=== PATIENT | female | born 1950 | race African-American/Black ===

== ENCOUNTER 2016-10-23 15:11 | Inpatient (IN) ==
[2016-10-23] MEDS ORDERED: ONDANSETRON 4 MG/2 ML VIAL IV STA (15:34)
--- NOTE | 2016-10-23 15:39 | Emergency Department Note ---
Arrival - Arrival Chief Complaint: Non-Specific ED Nursing Triage Note: c/o swelling to arms and legs onset 6 days ago Mode of Arrival: Stretcher Limitations: No Limitations Source: Patient - History of Present Illness HPI Narrative: This 66-year-old black female presents with complaints of one-week insidious onset of anasarca. She has had some mild nausea with this but no shortness of breath, chest pain, iram vomiting, or diarrhea. 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 Despite this she appears in relatively stable medical condition. Onset (ago): week(s) (Patient presents 1 week post onset of symptoms) Allergies/Adverse Reactions: Allergies Allergy/AdvReac Type Severity Reaction Status Date / Time No Known Allergies Allergy Unverified 05/15/15 19:30 Home Medications: Home Medications Medication Instructions Recorded Confirmed Type Unable To Obtain [Unable to Obtain] 10/22/16 10/22/16 History Review of System - Review of System 12 point system: reviewed and no additional remarkable complaints except as stated - Review of System Constitutional: Present: as per HPI Respiratory: Present: as per HPI Cardiovascular: Present: as per HPI Gastrointestinal: Present: as per HPI Medical,Surgical,& Family Hx - Medical History Cardio: History of: Hypertension Neurology: History of: Cerebrovascular Accident Endocrine: History of: Diabetes Mellitus (IDDM), Dyslipidemia Renal: History of: Renal (Kidney) Cancer (RT.KIDNEY REMOVAL), Dialysis, Renal Failure - Surgical History HEENT Surgeries: Surgical HX of: Eye Surgery (Melo cataract Dr Layne) Abdominal Surgeries: Surgical HX of: Hernia Repair (x4) Orthopedic Surgeries: Surgical HX of;: Orthopedic Surgery (left) - Social History Smoking Status: Unknown if ever smoked Frequency of Alcohol Use: None Type of Drug Use: None Exam Physical Examination: GENERAL: Well developed, well nourished elderly black female in no acute distress. HEENT: Normocephalic. No trauma. Moist mucous membranes. EOMI. PERRLA. ENT NML NECK: Supple. No adenopathy. CARDIAC: Regular. No murmurs. Heart rate 54 CHEST: Clear to auscultation. No respiratory distress. O2 sat 100% ABDOMEN: Soft. Nontender. Active bowel sounds. EXTREMITIES: No trauma. Normal ROM. No pedal edema. Right upper extremity AV fistula with good thrill. 1+ edema of the lower extremities. SKIN: No diaphoresis. No rash. NEURO: Alert. Neuro intact. No focal deficits. Vital Signs: Vital Signs Temperature 98.7 F 10/23/16 15:15 Pulse Rate 54 L 10/23/16 15:15 Respiratory Rate 18 10/23/16 16:27 Blood Pressure 162/55 10/23/16 15:15 O2 Sat by Pulse Oximetry 100 10/23/16 15:15 Course - Reevaluation(s) Reevaluation #1: Advised patient of need for hospitalization for treatment of her renal disease caused by her own neglect - Consultations Consultation #1: Discussed with hospitalist who will admit for further evaluation treatment. Results - Labs CBC & BMP: 10/23/16 16:05 10/23/16 16:05 Labs: I have reviewed the laboratory noted the multiple abnormalities including hyperkalemia - Impressions EKG: Atrial fibrillation at 53 with intraventricular conduction delay. Diffuse nonspecific ST changes. No acute injury pattern noted. - Diagnostic Findings Procedure: Chest x-ray: image reviewed by me, report reviewed by me (Old granulomatous disease otherwise normal chest.) Disposition Clinical Impression: Hyperkalemia, Dialysis dependent renal failure Case discussed with: patient Disposition: Still a Patient Condition: Guarded Time of Disposition: 17:06
[2016-10-23] MEDS: ALBUTEROL 2.5 MG/3 ML NEB RESP TX SCH ×3 (16:00→16:40)
[2016-10-23 16:07] LABS: Basophils % 0.1 % (0.0-0.8); Eosinophils # 0.3 10*3/uL (0.0-0.87); Eosinophils % 3.5 % (0.00-10.9); Hematocrit 23.6 VOL% (35.7-47.0); Hemoglobin 7.9 GM/DL (12.0-16.0); Immature Granulocytes % 1.3 %; Immature Granulocytes Absolute 0.09 #; Lymphocytes # 1.2 10*3/uL (1.4-4.0); Lymphocytes % 16.5 % (21.3-54.2); Mean Corpuscular HGB Conc 33.5 GM/DL (32-36); Mean Corpuscular Hemoglobin 33 PG (27-34); Mean Corpuscular Volume 99.2 FL (87-102); Mean Platelet Volume 10.1 FL (9.6-12.0); Monocytes # 0.4 10*3/uL (0.11-0.8); NRBC # 0.02 10*3/uL; Neutrophils # 5.2 10*3/uL (1.4-7.4); Neutrophils % 72.6 % (38.7-73.9); Platelet Count 140 T/CUMM (130-400); Red Blood Count 2.38 MC/CUMM (3.8-5.5); Red Cell Distribution Width 15.9 % (9.3-17.3); White Blood Count 7.1 T/CUMM (4-12)
[2016-10-23] MEDS ORDERED: ONDANSETRON 4 MG/2 ML VIAL ONE (16:12)
[2016-10-23 16:15] LABS: ABG Base Excess -17.7 MMOL/L (-2.5-2.5); ABG HCO3 8.6 MMOL/L (20-26); ABG Oxygen Saturation 96.7 % (95-100); ABG PCO2 22.2 MM HG (35-48); ABG PO2 106.4 MM HG (80-95); ABG TCO2 9.3 MMOL/L (23-27)
[2016-10-23 16:17] LABS: INR 1.1; PT Patient Result 11.3 SECS; Partial Thromboplastin Time 28.6 SECS (0-40)
[2016-10-23 16:17] LABS: ABG PH 7.206 (7.35-7.45)
--- NOTE | 2016-10-23 16:19 | XRay Report ---
Portable chest. Indication: Shortness of breath. The heart is normal in size. The pulmonary vasculature is normal. The lung agustin are clear. Calcified granulomas are again noted. No pneumothorax or pleural effusion. Degenerative changes are seen within the right shoulder. Impression: No acute abnormality PROCEDURE INTERPRETED AT [facility] DEPARTMENT OF RADIOLOGY Final Report Signed by: Dr. Anusha Ambriz
[2016-10-23 16:28] LABS: Albumin 2.9 G/DL (3.4-5.0); Bilirubin,Total 0.4 MG/DL (0.2-1.0); CKMB % 5.5 %; Calcium 6.3 MG/DL (8.5-10.1); Osmolality,Calculated 320.3 MOS/KG (273-304); Total Protein 6.1 G/DL (6.4-8.3)
[2016-10-23 16:33] LABS: Potassium 7.3 MMOL/L (3.5-5.1); Troponin I Only 0.106 NG/ML (0.00-0.045)
[2016-10-23] MEDS ORDERED: ALBUTEROL NEB SOLN 5 MG/ML 20 ML/BOTTLE CONT NEB STA (16:39)
[2016-10-23] MEDS ORDERED: CALCIUM CHLORIDE 1,000 MG/10 ML SYRINGE IV STA (16:39)
[2016-10-23] MEDS ORDERED: INSULIN REGULAR 100 UNIT/ML IV STA (16:39)
[2016-10-23] MEDS ORDERED: DEXTROSE 50% 25 GM/50 ML VIAL IV STA (16:39)
--- NOTE | 2016-10-23 16:47 | EKG Report ---
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
[2016-10-23] MEDS ORDERED: ONDANSETRON 4 MG/2 ML VIAL IV PRN (17:17)
--- NOTE | 2016-10-23 17:22 | Hospitalist History & Physical ---
Assessment and Plan (1) Hyperkalemia Status: Acute Assessment and plan: Potassium is grossly elevated, ED presentation noted at 7.3. The patient was given intravenous insulin and dextrose 50% with minimal response. The patient will be admitted to the critical care setting. We have consulted and spoke with nephrology regarding the need for emergent dialysis. Will closely monitor the patient for any cardiac abnormalities. (2) End stage renal failure on dialysis Status: Acute Assessment and plan: The patient is noncompliant with her hemodialysis treatment. Patient clearly needs hemodialysis at this point. Spoke with the patient in great detail regarding the need to medically compliant patient states "she did not feel like going". Nephrology has been consulted for emergent hemodialysis (3) Medical non-compliance Status: Acute Assessment and plan: Patient has noted noncompliance with her dialysis treatments. When I inquired related to the reason why she has been noncompliant patient states "I do not know. History of Present Illness Chief complaint: Swelling to the bilateral arms and legs History of present illness: Ms. Tony is a 66 year old female Allergies Allergy/AdvReac Type Severity Reaction Status Date / Time No Known Allergies Allergy Unverified 05/15/15 19:30 Medical,Surgical,& Family Hx - Medical History Cardio: History of: Hypertension Neurology: History of: Cerebrovascular Accident Endocrine: History of: Diabetes Mellitus (IDDM), Dyslipidemia Renal: History of: Renal (Kidney) Cancer (RT.KIDNEY REMOVAL), Dialysis, Renal Failure - Surgical History HEENT Surgeries: Surgical HX of: Eye Surgery (Melo cataract Dr Layne) Abdominal Surgeries: Surgical HX of: Hernia Repair (x4) Orthopedic Surgeries: Surgical HX of;: Orthopedic Surgery (left) - Social History Smoking Status: Unknown if ever smoked Frequency of Alcohol Use: None Type of Drug Use: None 12 point system: reviewed and no additional remarkable complaints except as stated Exam - Constitutional Vitals: Period Temp Pulse Resp BP Sys/Bae Pulse Ox Last 24 Hr 98.7 F-98.7 F 51-58 17-19 162-162/55-55 97-100 General appearance: mild distress, other (Anasarca) - Head Head exam: Present: normal inspection, normocephalic, atraumatic - Eye Eye exam: Present: EOMI. Absent: conjunctival injection Pupils: Present: FIORDALIZA, normal accommodation - ENT ENT exam: Present: normal exam, normal external ear exam, normal oropharynx - Neck Neck exam: Present: normal inspection. Absent: lymphadenopathy, meningismus, thyromegaly - Respiratory Respiratory exam: Present: clear to auscultation bilaterally. Absent: rales, rhonchi, stridor, wheezes - Cardiovascular Cardiovascular exam: Present: bradycardia, JVD. Absent: carotid bruit, diastolic murmur, gallop, rubs, systolic murmur - GI/Abdominal GI/Abdominal exam: Present: normal bowel sounds, soft - Extremities Exam Extremities exam: Present: edema (Anasarca noted to upper and lower torso) - Neurological Exam Neurological exam: Present: alert, oriented X3 - Psychiatric Psychiatric exam: Present: normal affect, normal mood - Skin Skin exam: Present: normal color, warm, dry Results - Labs CBC & BMP: 10/23/16 16:05 10/23/16 16:05 Lab Results: I have reviewed the past 24 hour labs
[2016-10-23] MEDS ORDERED: LUBIPROSTONE 24 MCG CAPSULE PO PRN (19:22)
[2016-10-23] MEDS: AMITRIPTYLINE 10 MG TABLET PO SCH (20:55)
[2016-10-23] MEDS: MORPHINE 2 MG/1 ML SYRINGE IV PRN (20:55)
[2016-10-23] MEDS: clonazePAM 0.5 MG TABLET PO SCH (20:55)
[2016-10-23] MEDS ORDERED: MIRTAZAPINE 15 MG TABLET PO SCH (21:00)
[2016-10-23 21:56] LABS: Hepatitis A Ab IgM Quant 0.06 Index; Hepatitis A Ab IgM Result Negative (Negative); Hepatitis B Core IgM Quant 0.19 Index; Hepatitis B Core IgM Result Negative (Negative); Hepatitis B Surface Ab Result Negative; Hepatitis B Surface Ag Quant 0.28 Index; Hepatitis B Surface Ag Result Negative (Negative); Hepatitis C Virus Ab Quant 0.12 Index; Hepatitis C Virus Ab Result Negative (Negative)
--- NOTE | 2016-10-23 23:52 | Nephrology Consult Note ---
History of Present Illness History of present illness: Ms. Tony is a 66 year old female with ESRD secondary to hypertension. She normally dialyzes in [facility]. She has missed dialysis for the past 2 weeks. She states she just did not feel like going. She was here yesterday and advised to stay for dialysis but left AMA. She returned today with complaints of increasing edema. She denies shortness of breath or nausea. She was noted to have severe hyperkalemia Home Medications Medication Instructions Recorded Confirmed Type Amitriptyline [Elavil] 10 mg PO TID 10/23/16 10/23/16 History Levofloxacin Tab [Levaquin Tab] 500 mg PO DAILY 10/23/16 10/23/16 History Lubiprostone [Amitiza] 24 mcg PO BID PRN 10/23/16 10/23/16 History Mirtazapine 15 mg PO QPM 10/23/16 10/23/16 History amLODIPine [Norvasc] 10 mg PO DAILY 10/23/16 10/23/16 History clonazePAM TAB [KlonoPIN] 0.5 mg PO BID 10/23/16 10/23/16 History hydrALAZINE TAB [Apresoline Tab] 50 mg PO TID 10/23/16 10/23/16 History Allergies Allergy/AdvReac Type Severity Reaction Status Date / Time No Known Allergies Allergy Unverified 05/15/15 19:30 Medical,Surgical,& Family Hx - Medical History Cardio: History of: Hypertension Neurology: History of: Cerebrovascular Accident (2005) Endocrine: History of: Diabetes Mellitus (IDDM), Diabetes Mellitus (NIDDM), Dyslipidemia Renal: History of: Renal (Kidney) Cancer (RT.KIDNEY REMOVAL 2009), Dialysis, Renal Failure - Surgical History Cardiac Surgeries: Sugical HX of: Cardiac Catheterization HEENT Surgeries: Surgical HX of: Eye Surgery (Melo cataract Dr Layne) Abdominal Surgeries: Surgical HX of: Hernia Repair (x4) Orthopedic Surgeries: Surgical HX of;: Orthopedic Surgery (left) - Social History Smoking Status: Heavy tobacco smoker Frequency of Alcohol Use: None Type of Drug Use: None Review of Systems 12 point system: reviewed and no additional remarkable complaints except as stated Exam - Vital Signs Vital signs: Period Temp Pulse Resp BP Sys/Bae Pulse Ox Last 24 Hr 98.2 F-98.7 F 51-96 12-23 162-214/44-93 96-100 Exam: Gen.: Alert and oriented x3. ENT: Pupils equal round reactive to light. EOMs intact. Mucous membranes moist. Neck: Supple. No JVD or bruit. Cardiovascular: Regular rate and rhythm. No murmur rub or gallop Lungs: Clear Abdomen: Soft. Nontender. Positive bowel sounds. No organomegaly Extremities: 2-3+ edema Results - Labs CBC & BMP: 10/23/16 16:05 10/23/16 16:05 Assessment and Plan (1) End stage renal failure on dialysis Status: Acute Assessment and plan: 66-year-old woman admitted with: * ESRD. She has been noncompliant with dialysis for 2 weeks. She has severe hyperkalemia and metabolic acidosis. Arrangements for urgent dialysis have been made * Hyperkalemia * metabolic acidosis * Hypertension Stable during dialysis. Current Visit: Yes (2) Metabolic acidosis Status: Acute Current Visit: Yes (3) Hypertension Status: Acute Current Visit: Yes (4) Hyperkalemia Status: Acute Current Visit: Yes
[2016-10-24 00:21] LABS: Calcium 7.1 MG/DL (8.5-10.1); Osmolality,Calculated 298.1 MOS/KG (273-304)
[2016-10-24] MEDS: DEXTROSE 50% 25 GM/50 ML VIAL IV PRN ×2 (00:30→05:50)
[2016-10-24] MEDS ORDERED: DEXTROSE 50% 25 GM/50 ML VIAL IV ONE (00:31)
[2016-10-24] MEDS: MORPHINE 2 MG/1 ML SYRINGE IV PRN (01:50)
[2016-10-24 04:43] LABS: Basophils % 0.3 % (0.0-0.8); Eosinophils # 0.2 10*3/uL (0.0-0.87); Eosinophils % 3.3 % (0.00-10.9); Hematocrit 21.6 VOL% (35.7-47.0); Hemoglobin 7.4 GM/DL (12.0-16.0); Immature Granulocytes % 1.4 %; Immature Granulocytes Absolute 0.09 #; Lymphocytes # 1.4 10*3/uL (1.4-4.0); Lymphocytes % 20.3 % (21.3-54.2); Mean Corpuscular HGB Conc 34.3 GM/DL (32-36); Mean Corpuscular Hemoglobin 33 PG (27-34); Mean Corpuscular Volume 95.2 FL (87-102); Mean Platelet Volume 10.5 FL (9.6-12.0); Monocytes # 0.6 10*3/uL (0.11-0.8); Monocytes % 8.4 % (1.7-12.7); NRBC # 0.02 10*3/uL; Neutrophils # 4.4 10*3/uL (1.4-7.4); Neutrophils % 66.3 % (38.7-73.9); Platelet Count 130 T/CUMM (130-400); Red Blood Count 2.27 MC/CUMM (3.8-5.5); Red Cell Distribution Width 15.3 % (9.3-17.3); White Blood Count 6.6 T/CUMM (4-12)
[2016-10-24 05:24] LABS: Albumin 2.7 G/DL (3.4-5.0); Bilirubin,Total 0.7 MG/DL (0.2-1.0); Magnesium 2.1 MG/DL (1.8-2.4); Osmolality,Calculated 298.1 MOS/KG (273-304); Potassium 4.1 MMOL/L (3.5-5.1); Total Protein 5.4 G/DL (6.4-8.3)
--- NOTE | 2016-10-24 07:36 | XRay Report ---
Exam: XR chest 1V portable Date: 10/24/2016 4:00 AM Indication: Shortness of breath Comparison: 10/23/2016 4:06 PM Technical: AP Findings: Cardiomegaly is present. Calcified nodes present perihilar regions with calcified granulomas scattered in the lung agustin. Lateral marginal osteophytes are present. Low volume left effusion present. The patient is rotated to the left. External cardiac leads are present. A neckless superimposes exam. ASVD is present. No pneumothorax Impression: 1. Cardiomegaly with low volume left effusion 2. Underlying granuloma changes. PROCEDURE INTERPRETED AT [facility] DEPARTMENT OF RADIOLOGY Final Report Signed by: Dr. Blaise Middleton
[2016-10-24] MEDS: AMITRIPTYLINE 10 MG TABLET PO SCH (08:31)
[2016-10-24] MEDS: clonazePAM 0.5 MG TABLET PO SCH (08:31)
[2016-10-24] MEDS ORDERED: LEVOFLOXACIN 500 MG TABLET PO SCH (09:00)
[2016-10-24] MEDS ORDERED: amLODIPine 10 MG TABLET PO SCH (09:00)
--- NOTE | 2016-10-24 11:42 | Discharge Summary ---
Hospital Course - Hospital Course Hospital Course: 66-year-old female admitted to the hospital due to hyperkalemia and metabolic acidosis related to noncompliance with dialysis. The patient was admittedly noncompliant with her dialysis over the last 2 weeks. She normally dialyzes Saturday and Saturday in [place]. She is admitted to the intensive care unit and seen in consultation by Dr. Brett Johnson. She underwent dialysis yesterday and has had a normalization of her metabolic acidosis and her potassium. She has reached maximal benefit from this inpatient hospitalization. Her swelling has improved. Her vital signs are stable. Her blood pressure is elevated and her home medications were resumed this morning. She will be discharged home today and will follow up in [place] at the dialysis center as regularly scheduled tomorrow. - Time spent with patient Time with patient DS: Greater than 30 minutes (Total discharge time for this patient, including [id number] time, clinical documentation, medication reconciliation, and discharge planning was 35 minutes.) Diagnosis - Discharge Diagnosis (1) Hyperkalemia Status: Acute (2) End stage renal failure on dialysis Status: Chronic (3) Medical non-compliance Status: Chronic (4) Metabolic acidosis Status: Acute (5) Hypertension Status: Chronic Discharge Plan - Discharge Data Disposition: Disch To Home/Self Care Condition at Discharge: Stable Discharge Diet: advance to your usual diet Activity: resume usual activities as tolerated Hygiene: no restrictions - Discharge Medications Continue Lubiprostone [Amitiza] 24 mcg PO BID PRN PRN Reason: Constipation hydrALAZINE TAB [Apresoline Tab] 50 mg PO TID Mirtazapine 15 mg PO QPM Levofloxacin Tab [Levaquin Tab] 500 mg PO DAILY Amitriptyline [Elavil] 10 mg PO TID clonazePAM TAB [KlonoPIN] 0.5 mg PO BID amLODIPine [Norvasc] 10 mg PO DAILY - Follow Up or Referral - Forms/Instructions Additional Discharge Instructions: Follow-up with her regulatory affairs coordinator at the dialysis center tomorrow as scheduled- in [place] Exam - Constitutional Vitals: Period Temp Pulse Resp BP Sys/Bae Pulse Ox Last 24 Hr 98 F-98.7 F 51-96 11-23 162-214/44-95 96-100 Discharge Results Procedures and tests throughout hospitalization: Pending Orders 10/23/16 19:15 MRSA Surveillence, Inf Control Routine Labs on day of discharge: Labs from last 24 hours 10/24/16 10/24/16 10/24/16 06:25 04:06 04:06 WBC 6.6 RBC 2.27 L Hgb 7.4 L Hct 21.6 L MCV 95.2 MCH 33 MCHC 34.3 RDW 15.3 Plt Count 130 MPV 10.5 Neut % (Auto) 66.3 Lymph % (Auto) 20.3 L [place] % (Auto) 8.4 Eos % (Auto) 3.3 Baso % (Auto) 0.3 Neut # (Auto) 4.4 Lymph # (Auto) 1.4 [place] # (Auto) 0.6 Eos # (Auto) 0.2 Baso # (Auto) 0.0 Immature Gran % 1.4 Nucleated RBC % 0.3 Immature Gran # 0.09 Nucleated RBCs # 0.02 INR PT Patient/Control Mix Circ Anticoag PTT ABG pH ABG pCO2 ABG pO2 ABG HCO3 ABG Total CO2 ABG O2 Saturation ABG Base Excess Sodium 142 Potassium 4.1 Chloride 107 Carbon Dioxide 20 L Anion Gap 19.1 H BUN 67 H Creatinine 8.40 H GFR Calculation 6 BUN/Creatinine Ratio 7.00 Glucose 43 L POC Glucose 115 H Calculated Osmolality 298.1 Calcium 7.0 L Magnesium 2.1 Total Bilirubin 0.70 AST 10 ALT 10 L Alkaline Phosphatase 74 Total Creatine Kinase CK-MB (CK-2) CK and CKMB Interp Troponin I B-Natriuretic Peptide Total Protein 5.4 L Albumin 2.7 L Globulin 2.7 Albumin/Globulin Ratio 1.0 L Hepatitis A IgM Ab Hep Bs Antigen Hep Bs Antibody Hep B Core IgM Ab Hepatitis C Antibody 10/24/16 10/23/16 10/23/16 00:53 23:49 20:22 WBC RBC Hgb Hct MCV MCH MCHC RDW Plt Count MPV Neut % (Auto) Lymph % (Auto) [place] % (Auto) Eos % (Auto) Baso % (Auto) Neut # (Auto) Lymph # (Auto) [place] # (Auto) Eos # (Auto) Baso # (Auto) Immature Gran % Nucleated RBC % Immature Gran # Nucleated RBCs # INR PT Patient/Control Mix Circ Anticoag PTT ABG pH ABG pCO2 ABG pO2 ABG HCO3 ABG Total CO2 ABG O2 Saturation ABG Base Excess Sodium 142 Potassium 4.0 Chloride 107 Carbon Dioxide 19 L Anion Gap 20.0 H BUN 65 H D Creatinine 7.90 H GFR Calculation 6 BUN/Creatinine Ratio 8.00 Glucose 40 L* POC Glucose 104 Calculated Osmolality 298.1 Calcium 7.1 L Magnesium Total Bilirubin AST ALT Alkaline Phosphatase Total Creatine Kinase CK-MB (CK-2) CK and CKMB Interp Troponin I B-Natriuretic Peptide Total Protein Albumin Globulin Albumin/Globulin Ratio Hepatitis A IgM Ab Negative Hep Bs Antigen Negative Hep Bs Antibody Negative Hep B Core IgM Ab Negative Hepatitis C Antibody Negative 10/23/16 10/23/16 10/23/16 19:29 16:10 16:05 WBC RBC Hgb Hct MCV MCH MCHC RDW Plt Count MPV Neut % (Auto) Lymph % (Auto) [place] % (Auto) Eos % (Auto) Baso % (Auto) Neut # (Auto) Lymph # (Auto) [place] # (Auto) Eos # (Auto) Baso # (Auto) Immature Gran % Nucleated RBC % Immature Gran # Nucleated RBCs # INR PT Patient/Control Mix Circ Anticoag PTT ABG pH 7.206 L* ABG pCO2 22.2 L ABG pO2 106.4 H ABG HCO3 8.6 L ABG Total CO2 9.3 L ABG O2 Saturation 96.7 ABG Base Excess -17.7 L Sodium Potassium Chloride Carbon Dioxide Anion Gap BUN Creatinine GFR Calculation BUN/Creatinine Ratio Glucose POC Glucose Calculated Osmolality Calcium Magnesium Total Bilirubin AST ALT Alkaline Phosphatase Total Creatine Kinase CK-MB (CK-2) CK and CKMB Interp Troponin I B-Natriuretic Peptide 657 H 633 H Total Protein Albumin Globulin Albumin/Globulin Ratio Hepatitis A IgM Ab Hep Bs Antigen Hep Bs Antibody Hep B Core IgM Ab Hepatitis C Antibody 10/23/16 10/23/16 10/23/16 16:05 16:05 16:05 WBC 7.1 RBC 2.38 L Hgb 7.9 L Hct 23.6 L MCV 99.2 MCH 33 MCHC 33.5 RDW 15.9 Plt Count 140 MPV 10.1 Neut % (Auto) 72.6 Lymph % (Auto) 16.5 L [place] % (Auto) 6.0 Eos % (Auto) 3.5 Baso % (Auto) 0.1 Neut # (Auto) 5.2 Lymph # (Auto) 1.2 L [place] # (Auto) 0.4 Eos # (Auto) 0.3 Baso # (Auto) 0.0 Immature Gran % 1.3 Nucleated RBC % 0.3 Immature Gran # 0.09 Nucleated RBCs # 0.02 INR 1.1 PT Patient/Control Mix 11.3 Circ Anticoag PTT 28.6 ABG pH ABG pCO2 ABG pO2 ABG HCO3 ABG Total CO2 ABG O2 Saturation ABG Base Excess Sodium 141 Potassium 7.3 H* Chloride 112 H Carbon Dioxide 11 L Anion Gap 25.3 H BUN 130 H D Creatinine 14.90 H GFR Calculation 3 BUN/Creatinine Ratio 8.00 Glucose 70 L POC Glucose Calculated Osmolality 320.3 H Calcium 6.3 L Magnesium Total Bilirubin 0.40 AST 7 ALT 10 L Alkaline Phosphatase 76 Total Creatine Kinase 201 H CK-MB (CK-2) 11.0 H CK and CKMB Interp 5.5 Troponin I 0.106 H B-Natriuretic Peptide Total Protein 6.1 L Albumin 2.9 L Globulin 3.2 Albumin/Globulin Ratio 0.9 L Hepatitis A IgM Ab Hep Bs Antigen Hep Bs Antibody Hep B Core IgM Ab Hepatitis C Antibody DS: Provider Date of admission: 10/23/16 17:16 Primary care physician: . No PCP Attending physician on admission: Jabier Chang DO Consults: 10/23/16 17:17 Consult to Physician [CONS] Routine Comment: Consulting Provider: Brett Johnson When should Consulting Provider be notified: Now 10/23/16 17:18 Consult to Case Mgmt/Social Srvs [CONS] Routine Reason for Case Mgmt/Social Srvs: Discharge Planning Psychiatric Management 10/23/16 19:33 Consult to Dietitian [CONS] Routine Reason for Dietitian: Dietary Consult 10/23/16 19:36 Consult to Pastoral Services [CONS] Routine Comment: Pastoral Screen: Request Fireworks Maker Visit Pastoral Screen Source of Request: Patient Name of Physician Requesting: Dr. Chang Discharging clinician: Ansley Donahue MD Expected date of discharge: 10/24/16
[2016-10-24] MEDS ORDERED: hydrALAZINE 20 MG/1 ML VIAL IV PRN (11:46)
[2016-10-24] MEDS ORDERED: PHENOL 1.4% THROAT SPRAY 177 ML BOTTLE PO ONE (14:00)
[2016-10-24 15:37] VITALS: BP 164/69
--- NOTE | 2016-10-24 21:33 | Nephrology Progress Note ---
Nephrology - PN: Subj Interval history: She denies shortness of breath or chest pain. No GI symptoms. Exam (PN)-Nephrology - Vital Signs Vital signs: Period Temp Pulse Resp BP Sys/Bae Pulse Ox Last 24 Hr 98 F-98.6 F 74-100 11- 116-214/69-95 97-100 Exam: ENT: Normal Cardiovascular: Regular rate and rhythm. No murmur rub or gallop Lungs: Clear Extremities: 2+ edema - Lab 10/24/16 04:06 10/24/16 04:06 Most recent lab results ABG pH 7.206 (7.35-7.45) L* 10/23/16 16:10 ABG pCO2 22.2 MM HG (35-48) L 10/23/16 16:10 ABG pO2 106.4 MM HG (80-95) H 10/23/16 16:10 ABG HCO3 8.6 MMOL/L (20-26) L 10/23/16 16:10 ABG O2 Saturation 96.7 % (95-100) 10/23/16 16:10 Calcium 7.0 MG/DL (8.5-10.1) L 10/24/16 04:06 Magnesium 2.1 MG/DL (1.8-2.4) 10/24/16 04:06 Assessment and Plan (1) End stage renal failure on dialysis Status: Chronic Assessment and plan: 66-year-old woman admitted with: * ESRD. She tolerated dialysis last night without problems. She has no current uremic symptoms * Hyperkalemia. Resolved * metabolic acidosis. Much improved * Hypertension She is stable for discharge. I emphasized the importance of keeping her outpatient dialysis schedule tomorrow (2) Metabolic acidosis Status: Acute (3) Hypertension Status: Chronic (4) Hyperkalemia Status: Acute
== END 2016-10-24 15:20 | disposition home or self-care (01) | DRG 640 ==
LOC: EDBD → EDUNIT# → N.ED 15:11 → N.EDINP 17:16 → SUATTDRO 17:16 → N.CC 19:08
PROVIDERS: ADMIT Internal Medicine; ATTEND Family Medicine

== ENCOUNTER 2016-11-07 18:44 | Inpatient (IN) ==
[2016-11-07] MEDS ORDERED: methylPREDNISolone SOD SUC 125 MG/2 ML VIAL IV ONE (19:13)
[2016-11-07] MEDS ORDERED: ALBUTEROL 2.5 MG/3 ML NEB RESP TX STA (19:13)
--- NOTE | 2016-11-07 19:21 | Emergency Department Note ---
IFer Emily, am scribing for, and in the presence of, Jose David Wills MD 19: 18. IJohann Robert M, MD, personally performed the services described in this documentation, ascribed by Jesusita Monroe in my presence, and it is both accurate and complete 921 . Arrival - Arrival Chief Complaint: Non-Specific ED Nursing Triage Note: PT DENIES ANY COMPLAINTS STATES [facility] MADE HER COME, [facility] RECEIVED A PHONE CALL FROM A GAME PRODUCER FROM [facility] TODAY CONCERNED BECAUSE THE PT WAS HOME ALONE AND HAS ESRD Mode of Arrival: Stretcher Limitations: No Limitations Source: Patient - History of Present Illness HPI Narrative: Pt is a 66 y/o female who came to ED due to [facility] getting a call from social worker delinquency prevention at [facility] earlier today. Pt notes having hip pain from fall last week out of wheelchair, in which was worked up and advised to have hip replacement. Pt states she is on dialysis but having trouble making it to dialysis, because her being ill and in the hospital. She reports having no family around to help her get around. Pt is a smoker. Note is made the patient gets dialysis in [place]. She is in the [facility] system. Onset (ago): hour(s) Consistency: constant Severity: mild, moderate Severity scale (1-10): 4 Quality: aching Allergies/Adverse Reactions: Allergies Allergy/AdvReac Type Severity Reaction Status Date / Time No Known Allergies Allergy Verified 11/07/16 18:58 Home Medications: Home Medications Medication Instructions Recorded Confirmed Type Amitriptyline [Elavil] 10 mg PO QID PRN 10/23/16 11/07/16 History Lubiprostone [Amitiza] 24 mcg PO BID PRN 10/23/16 11/07/16 History Mirtazapine 15 mg PO QPM 10/23/16 11/07/16 History amLODIPine [Norvasc] 10 mg PO DAILY 10/23/16 11/07/16 History clonazePAM TAB [KlonoPIN] 0.5 mg PO BID 10/23/16 11/07/16 History hydrALAZINE TAB [Apresoline Tab] 75 mg PO TID 10/23/16 11/07/16 History HYDROcodone/ACETAMIN 7.5-325 1 tablet PO Q6H PRN #20 tablet 11/01/16 11/07/16 Rx [[place] 7.5-325] Colchicine [Colcrys] 0.6 mg PO DAILY 11/07/16 11/07/16 History Labetalol HCl 100 mg PO BID 11/07/16 11/07/16 History Torsemide [Torsemide] 20 mg PO DAILY 11/07/16 11/07/16 History cloNIDine HCl [Clonidine HCl] 0.1 mg PO TID 11/07/16 11/07/16 History Review of System - Review of System 12 point system: reviewed and no additional remarkable complaints except as stated - Review of System Constitutional: Absent: fever Respiratory: Absent: respiratory distress Cardiovascular: Absent: chest pain Gastrointestinal: Absent: abdominal pain Musculoskeletal: Present: other (hip pain). Absent: arm pain, back pain, leg pain, neck pain Skin: Absent: rash Neurological: Absent: headache Medical,Surgical,& Family Hx - Medical History Cardio: History of: Hypertension Neurology: History of: Cerebrovascular Accident (2005) Endocrine: History of: Diabetes Mellitus (IDDM), Diabetes Mellitus (NIDDM) Renal: History of: Renal (Kidney) Cancer (RT.KIDNEY REMOVAL 2009), Renal Failure - Surgical History Cardiac Surgeries: Sugical HX of: Cardiac Catheterization HEENT Surgeries: Surgical HX of: Eye Surgery (Melo cataract Dr Layne) Abdominal Surgeries: Surgical HX of: Hernia Repair (x4) Orthopedic Surgeries: Surgical HX of;: Orthopedic Surgery (left) - Social History Smoking Status: Heavy tobacco smoker Marital Status: Lives With:: Spouse Functional capacity: wheelchair bound Exam Vital Signs: Vital Signs Temperature 99.5 F 11/07/16 18:44 Pulse Rate 75 11/07/16 18:44 Respiratory Rate 18 11/07/16 18:44 Blood Pressure 149/54 11/07/16 18:44 O2 Sat by Pulse Oximetry 98 11/07/16 18:44 - General General appearance: alert, in no apparent distress - Head Head exam: Present: atraumatic, normocephalic - Eye Eye exam: Present: PERRL, EOMI - ENT ENT exam: Present: mucous membranes moist. Absent: mucous membranes dry - Neck Neck exam: Present: full ROM. Absent: tenderness - Chest Chest inspection: Present: symmetric chest wall rise. Absent: tenderness - Respiratory Respiratory exam: Present: wheezes (diffusely). Absent: accessory muscle use, respiratory distress - Cardiovascular Cardiovascular exam: Present: regular rate, normal rhythm, normal heart sounds - Extremities Exam Extremities exam: Present: full ROM. Absent: tenderness, pedal edema - Neurological Exam Neurological exam: Present: alert, oriented X3, CN II-XII intact. Absent: motor sensory deficit - Psychiatric Psychiatric exam: Present: normal affect, normal mood - Skin Skin exam: Present: warm, dry Course - Consultations Consultation #1: Dr. Tony will admit the patient but requests I call back when the labs are complete. Time: 20:09 Consultation #2: Dr. Narayan was consulted and notified the patient's admission. The patient has seen Brett Johnson in the past. Time: 20:33 Results - Labs CBC & BMP: 11/07/16 19:40 11/07/16 19:40 Lab Results: I have reviewed the patients labs Labs: Lab Results WBC 9.5 T/CUMM (4-12) 11/07/16 19:40 RBC 1.96 MC/CUMM (3.8-5.5) L 11/07/16 19:40 Hgb 6.2 GM/DL (12.0-16.0) L* 11/07/16 19:40 Hct 19.3 VOL% (35.7-47.0) L 11/07/16 19:40 MCV 98.5 FL (87-102) 11/07/16 19:40 MCH 32 PG (27-34) 11/07/16 19:40 MCHC 32.1 GM/DL (32-36) 11/07/16 19:40 RDW 14.8 % (9.3-17.3) 11/07/16 19:40 Plt Count 200 T/CUMM (130-400) 11/07/16 19:40 MPV 9.7 FL (9.6-12.0) 11/07/16 19:40 Neut % (Auto) 65.5 % (38.7-73.9) 11/07/16 19:40 Lymph % (Auto) 24.6 % (21.3-54.2) 11/07/16 19:40 Dukes % (Auto) 5.2 % (1.7-12.7) 11/07/16 19:40 Eos % (Auto) 4.2 % (0.00-10.9) 11/07/16 19:40 Baso % (Auto) 0.1 % (0.0-0.8) 11/07/16 19:40 Neut # (Auto) 6.2 10*3/uL (1.4-7.4) 11/07/16 19:40 Lymph # (Auto) 2.3 10*3/uL (1.4-4.0) 11/07/16 19:40 Dukes # (Auto) 0.5 10*3/uL (0.11-0.8) 11/07/16 19:40 Eos # (Auto) 0.4 10*3/uL (0.0-0.87) 11/07/16 19:40 Baso # (Auto) 0.0 10*3/uL (0.0-0.2) 11/07/16 19:40 Immature Gran % 0.4 % 11/07/16 19:40 Nucleated RBC % 0.0 /100WBC 11/07/16 19:40 Immature Gran # 0.04 # 11/07/16 19:40 Nucleated RBCs # 0.00 10*3/uL 11/07/16 19:40 Disposition Clinical Impression: End stage renal failure on dialysis, Right lower lobe pneumonia, Wheezing, Anemia
--- NOTE | 2016-11-07 19:49 | XRay Report ---
History: Chest pain. Shortness of breath Date: 11/07/2016 Study: Chest x-ray single view portable Comparison exam: October 31, 2016 There is cardiomegaly. The pulmonary vasculature is upper normal. The mediastinal contours are unchanged. There is no gross pleural effusion. There is occasional scattered calcified granulomata. There is mild asymmetric haziness in the right lung base. Osseous structures are unchanged. There is mild to moderate thoracic spondylosis. Impression: Nonspecific mild hazy infiltrate in the right lung base which could represent pneumonia or early asymmetric pulmonary edema. The pulmonary vasculature is borderline prominent. PROCEDURE INTERPRETED AT [facility] DEPARTMENT OF RADIOLOGY Final Report Signed by: Dr. Maryana Barraza
[2016-11-07 19:58] LABS: Basophils % 0.1 % (0.0-0.8); Eosinophils # 0.4 10*3/uL (0.0-0.87); Eosinophils % 4.2 % (0.00-10.9); Hematocrit 19.3 VOL% (35.7-47.0); Immature Granulocytes % 0.4 %; Immature Granulocytes Absolute 0.04 #; Lymphocytes # 2.3 10*3/uL (1.4-4.0); Lymphocytes % 24.6 % (21.3-54.2); Mean Corpuscular HGB Conc 32.1 GM/DL (32-36); Mean Corpuscular Hemoglobin 32 PG (27-34); Mean Corpuscular Volume 98.5 FL (87-102); Mean Platelet Volume 9.7 FL (9.6-12.0); Monocytes # 0.5 10*3/uL (0.11-0.8); Monocytes % 5.2 % (1.7-12.7); Neutrophils # 6.2 10*3/uL (1.4-7.4); Neutrophils % 65.5 % (38.7-73.9); Platelet Count 200 T/CUMM (130-400); Red Blood Count 1.96 MC/CUMM (3.8-5.5); Red Cell Distribution Width 14.8 % (9.3-17.3); White Blood Count 9.5 T/CUMM (4-12)
[2016-11-07 20:02] LABS: Hemoglobin 6.2 GM/DL (12.0-16.0)
[2016-11-07] MEDS ORDERED: methylPREDNISolone SOD SUC 125 MG/2 ML VIAL ONE (20:07)
[2016-11-07 20:13] LABS: Calcium 6.3 MG/DL (8.5-10.1); Magnesium 2.3 MG/DL (1.8-2.4)
[2016-11-07 20:14] LABS: Osmolality,Calculated 302.4 MOS/KG (273-304)
[2016-11-07 20:18] LABS: Potassium 6.7 MMOL/L (3.5-5.1)
[2016-11-07] MEDS ORDERED: CALCIUM GLUCONATE 1,000 MG in SODIUM CHLORIDE 0.9% 100 ML IV ONE (21:48)
[2016-11-07] MEDS ORDERED: SODIUM POLYSTYRENE SULFATE 15 GM/60 ML BOTTLE PO STA (21:48)
[2016-11-07] MEDS ORDERED: SODIUM BICARB INJ 100 MEQ in STERILE WATER INJ 400 ML IV ONE (21:48)
[2016-11-07] MEDS ORDERED: DEXTROSE 50% 25 GM/50 ML VIAL IV STA (21:49)
[2016-11-07] MEDS ORDERED: INSULIN REGULAR 100 UNIT/ML SUBCUT STA (21:50)
--- NOTE | 2016-11-07 21:50 | Hospitalist History & Physical ---
Assessment and Plan (1) Hyperkalemia Status: Acute Assessment and plan: due to RF due to poor compliance to HD Plan Kayexalate, bicarb, calcium gluconate, insulin plus dextrose Repeat levels Nephrology-Dr Huizar has been informed for HD in am Current Visit: No (2) End stage renal failure on dialysis Status: Chronic Assessment and plan: She has skipped 6 sessions due to hospitalization of property caretaker Plan Resume HD in am. Nephrology has been consulted Current Visit: Yes (3) Hypertension Status: Chronic Assessment and plan: will resume home meds Current Visit: No (4) Fall Status: Acute Assessment and plan: resulting in left hip and knee pain Plan Xray PT consult Current Visit: No (5) Right lower lobe pneumonia Status: Acute Assessment and plan: will start IV Levaquin follow SC,BC Current Visit: Yes (6) Debility Status: Acute Assessment and plan: we will consult social work faculty member for disposition Current Visit: Yes (7) Tobacco abuse Status: Acute Assessment and plan: she has been counseled to quit. -will start Nicotine patch Current Visit: Yes History of Present Illness Chief complaint: debility History of present illness: Ms. Tony is a 66 year old female with a history of ESRD on HD thrice weekly. She lives at home with her who is her primary property caretaker. Recently, her suffered a stroke and was hospitalized leaving her home alone. She apparently fell out of her wheelchair last week resulting to a left hip and knee pain. She was told that she will need a possible hip replacement.Her family was worried that she had skipped dialyses six times since her pry morning caregiver was unavailable so they decided to bring her to the ER for help. Upon arrival she was a little bit SOB and her CXR showed a nonspecific mild hazy infiltrate in the right lung base which could represent pneumonia or early asymmetric pulmonary edema. Her labs showed an elevated potassium of 6.7. She was given some steroids and nebs treatment in the ER. We will give kayexalate, bicarb, insulin plus glucose and calcium gluconate immediately. Nephrology has been consulted. Dr Huizar will see in am. Home Medications Medication Instructions Recorded Confirmed Type Amitriptyline [Elavil] 10 mg PO QID PRN 10/23/16 11/07/16 History Lubiprostone [Amitiza] 24 mcg PO BID PRN 10/23/16 11/07/16 History Mirtazapine 15 mg PO QPM 10/23/16 11/07/16 History amLODIPine [Norvasc] 10 mg PO DAILY 10/23/16 11/07/16 History clonazePAM TAB [KlonoPIN] 0.5 mg PO BID 10/23/16 11/07/16 History hydrALAZINE TAB [Apresoline Tab] 75 mg PO TID 10/23/16 11/07/16 History HYDROcodone/ACETAMIN 7.5-325 1 tablet PO Q6H PRN #20 tablet 11/01/16 11/07/16 Rx [[place] 7.5-325] Colchicine [Colcrys] 0.6 mg PO DAILY 11/07/16 11/07/16 History Labetalol HCl 100 mg PO BID 11/07/16 11/07/16 History Torsemide [Torsemide] 20 mg PO DAILY 11/07/16 11/07/16 History cloNIDine HCl [Clonidine HCl] 0.1 mg PO TID 11/07/16 11/07/16 History Allergies Allergy/AdvReac Type Severity Reaction Status Date / Time No Known Allergies Allergy Verified 11/07/16 18:58 Medical,Surgical,& Family Hx - Medical History Cardio: History of: Hypertension Neurology: History of: Cerebrovascular Accident (2005) Endocrine: History of: Diabetes Mellitus (IDDM), Diabetes Mellitus (NIDDM), Dyslipidemia Renal: History of: Renal (Kidney) Cancer (RT.KIDNEY REMOVAL 2009), Dialysis, Renal Failure - Surgical History Cardiac Surgeries: Sugical HX of: Cardiac Catheterization HEENT Surgeries: Surgical HX of: Eye Surgery (Melo cataract Dr Layne) Abdominal Surgeries: Surgical HX of: Hernia Repair (x4) Orthopedic Surgeries: Surgical HX of;: Orthopedic Surgery (left) - Social History Smoking Status: Heavy tobacco smoker 12 point system: reviewed and no additional remarkable complaints except as stated Exam - Constitutional Vitals: Period Temp Pulse Resp BP Sys/Bae Pulse Ox Last 24 Hr 99.5 F-99.5 F 75-75 18-18 126-149/54-89 98 General appearance: mild distress - Respiratory Respiratory exam: Present: decreased breath sounds - Cardiovascular Cardiovascular exam: Present: regular rate and rhythm - GI/Abdominal GI/Abdominal exam: Present: normal bowel sounds - Extremities Exam Extremities exam: Present: edema - Neurological Exam Neurological exam: Present: alert, oriented X3 Results - Labs CBC & BMP: 11/07/16 19:40 11/07/16 19:40 Lab Results: I have reviewed the past 24 hour labs
[2016-11-07] MEDS ORDERED: DEXTROSE 50% 25 GM/50 ML VIAL IV ONE (22:14)
[2016-11-07] MEDS ORDERED: SODIUM POLYSTYRENE SULFATE 15 GM/60 ML BOTTLE ONE (22:14)
[2016-11-07] MEDS ORDERED: INSULIN REGULAR 100 UNIT/ML ONE (22:15)
[2016-11-07] MEDS ORDERED: NICOTINE 14 MG/24 HR PATCH TRANSDERM PRN (23:16)
[2016-11-07] MEDS ORDERED: ONDANSETRON 4 MG/2 ML VIAL IV PRN (23:16)
[2016-11-07] MEDS ORDERED: LUBIPROSTONE 24 MCG CAPSULE PO PRN (23:16)
[2016-11-08] MEDS ORDERED: HALOPERIDOL 5 MG TABLET PO PRN (07:54)
[2016-11-08] MEDS ORDERED: NICOTINE 21 MG/24 HR PATCH TRANSDERM ONE (08:03)
[2016-11-08] MEDS: NICOTINE 21 MG/24 HR PATCH TRANSDERM SCH (08:40)
[2016-11-08] MEDS: clonazePAM 0.5 MG TABLET PO SCH ×2 (08:54→20:49)
[2016-11-08] MEDS: cloNIDine 0.1 MG TABLET PO SCH ×3 (08:54→20:49)
[2016-11-08] MEDS: AMITRIPTYLINE 10 MG TABLET PO PRN (08:54)
[2016-11-08] MEDS: COLCHICINE 0.6 MG TABLET PO SCH (08:55)
[2016-11-08] MEDS: TORSEMIDE 20 MG TABLET PO SCH (08:55)
[2016-11-08] MEDS: LABETALOL 100 MG TABLET PO SCH ×2 (08:55→20:49)
[2016-11-08] MEDS: ENOXAPARIN 30 MG/0.3 ML SYRINGE SUBCUT SCH (08:56)
[2016-11-08] MEDS: amLODIPine 10 MG TABLET PO SCH (08:56)
[2016-11-08] MEDS ORDERED: LEVOFLOXACIN INJ 250 MG in PREMIX 1 EACH IV SCH (09:00)
[2016-11-08] MEDS ORDERED: SODIUM CHLORIDE 0.9% 250 ML IV PRN (09:20)
[2016-11-08 11:23] LABS: Hematocrit 20.5 VOL% (35.7-47.0); Hemoglobin 6.7 GM/DL (12.0-16.0); Immature Granulocytes % 0.7 %; Immature Granulocytes Absolute 0.03 #; Lymphocytes # 0.4 10*3/uL (1.4-4.0); Mean Corpuscular HGB Conc 32.7 GM/DL (32-36); Mean Corpuscular Hemoglobin 32 PG (27-34); Mean Corpuscular Volume 98.1 FL (87-102); Mean Platelet Volume 9.6 FL (9.6-12.0); Monocytes # 0.1 10*3/uL (0.11-0.8); Monocytes % 1.7 % (1.7-12.7); Neutrophils # 3.7 10*3/uL (1.4-7.4); Neutrophils % 88.6 % (38.7-73.9); Platelet Count 172 T/CUMM (130-400); Red Blood Count 2.09 MC/CUMM (3.8-5.5); Red Cell Distribution Width 14.8 % (9.3-17.3); White Blood Count 4.2 T/CUMM (4-12)
[2016-11-08 11:36] LABS: Alanine Aminotransferase 9 U/L (13-56); Albumin 2.6 G/DL (3.4-5.0); Alkaline Phosphatase 104 U/L (45-117); Aspartate Amino Transferase 8 U/L (0-37); Bilirubin,Total < 0.39 MG/DL (0.2-1.0); Blood Urea Nitrogen 81 MG/DL (7-18); Cholesterol 223 MG/DL (50-200); Glucose 236 MG/DL (74-106); HDL Cholesterol 69 MG/DL (40-60); Osmolality,Calculated 310.4 MOS/KG (273-304); Risk Ratio 3.23; Sodium 140 MMOL/L (136-145); Total Protein 5.7 G/DL (6.4-8.3); Triglycerides 91 MG/DL (2-150); VLDL CHOLESTEROL 18.2 MG/DL
[2016-11-08 11:45] LABS: Hypochromasia 1+; Lymphocytes 9 % (20-55); Segmented Neutrophils 90 % (50-85); Total Cells Counted 100
[2016-11-08 11:46] LABS: Macrocytosis Slight; Platelet Estimate Adequate
[2016-11-08 11:48] LABS: Calcium 5.8 MG/DL (8.5-10.1); Potassium 7.1 MMOL/L (3.5-5.1)
--- NOTE | 2016-11-08 11:58 | Hospitalist Progress Note ---
Assessment and Plan (1) Hyperkalemia Status: Acute Assessment and plan: Patient is end-stage renal disease going for dialysis this morning. Better take care of the hypokalemia repeat BMP tomorrow morning Current Visit: No (2) End stage renal failure on dialysis Status: Chronic Current Visit: Yes (3) Right lower lobe pneumonia Status: Acute Assessment and plan: Description of the chest x-ray. For symptomatic. Patient was given levofloxacin in the emergency room which should be discontinued and patient will be given azithromycin and ceftriaxone community-acquired pneumonia Current Visit: Yes (4) Anemia Status: Acute Assessment and plan: Vision is profound anemia possibly complicating chronic disease and chronic and bleeding. Patient will be transfused 2 units of packed cells at dialysis. Repeat H&H tomorrow Current Visit: Yes (5) Tobacco abuse Status: Acute Assessment and plan: Patient is not able to be counseled at the store point because of confusion and a cantankerousoutput 21 mg patch on her. She smokes more than 1 pack a day. Current Visit: Yes Hospitalist: Subjective Interval history: Patient has been seen interviewed and examined and chart has been reviewed. Patient was admitted overnight with physical debility and confusion. Patient noncompliance with her dialysis schedule as it could stop taking care of herself not taking medication; presented with hyperkalemia elevated BUN confusion and patient is due for dialysis which we will take care of the potassium issues and I hope that there can be increasing calcium in the dialysate bath to correlate the hypocalcemia issue. She also is volume overloaded. Patient was very cantankerous this morning threatening to leave. She is a heavy smoker. I gave her 21 mg patch of nicotine and a shot of Haldol after that she was well collected. She will be going for dialysis is soon. She also is very anemic will type and cross 2 units we should be transfused at dialysis. Exam - Constitutional Vitals: Period Temp Pulse Resp BP Sys/Bae Pulse Ox Last 24 Hr 97.9 F-99.5 F 70-83 18-20 118-211/54-91 94-100 General appearance: normal weight, other (Cantankerous confused and combative) - Head Head exam: Present: normocephalic, atraumatic, other (Noted hirsutism) - Eye Eye exam: Present: EOMI Pupils: Present: FIORDALIZA - Neck Neck exam: Present: normal inspection - Respiratory Respiratory exam: Present: clear to auscultation bilaterally - Cardiovascular Cardiovascular exam: Present: regular rate and rhythm - GI/Abdominal GI/Abdominal exam: Present: normal bowel sounds, soft - Extremities Exam Extremities exam: Present: full ROM, other (She has a scratch on the lateral aspect of the right lower extremity which she claims it happened since coming to the hospital. The mechanics of which I do not know.) - Neurological Exam Neurological exam: Present: alert, CN II-XII intact, other (Confused and cantankerous) - Psychiatric Psychiatric exam: Present: other (As above) - Skin Skin exam: Present: normal color, warm, dry, other (Scratch on the lateral aspect of the right lower extremity) Results - Labs CBC & BMP: 11/08/16 10:45 11/08/16 10:27 Lab Results: I have reviewed the past 24 hour labs (Noted worsening hyperkalemia end-stage renal disease on dialysis chronic anemia with H&H 6.7/ 20.5)
[2016-11-08] MEDS: NEOMYCIN/POLYMYXIN/BACITRACIN OINT 0.9 GM PACK TOP SCH ×2 (13:16→20:49)
[2016-11-08] MEDS ORDERED: AZITHROMYCIN INJ 500 MG in SODIUM CHLORIDE 0.9% 250 ML IV SCH (14:00)
[2016-11-08] MEDS ORDERED: cefTRIAXone 2,000 MG in SODIUM CHLORIDE 0.9% 100 ML IV SCH (15:00)
--- NOTE | 2016-11-08 19:38 | Nephrology Consult Note ---
History of Present Illness Chief complaint: End-stage renal disease History of present illness: Ms. Tony is a 66 year old female history of end-stage renal disease is followed by Dr. Johnson. Patient missed dialysis earlier this week as her primary provider had a stroke and was unable to care for patient. Patient has been admitted for hyperkalemia with a potassium of 7. She restarted on hemodialysis and tolerated the procedure. She has been hemodynamically stable. No fevers or chills. No shortness of breath. Home Medications Medication Instructions Recorded Confirmed Type Amitriptyline [Elavil] 10 mg PO QID PRN 10/23/16 11/07/16 History Lubiprostone [Amitiza] 24 mcg PO BID PRN 10/23/16 11/07/16 History Mirtazapine 15 mg PO QPM 10/23/16 11/07/16 History amLODIPine [Norvasc] 10 mg PO DAILY 10/23/16 11/07/16 History clonazePAM TAB [KlonoPIN] 0.5 mg PO BID 10/23/16 11/07/16 History hydrALAZINE TAB [Apresoline Tab] 75 mg PO TID 10/23/16 11/07/16 History HYDROcodone/ACETAMIN 7.5-325 1 tablet PO Q6H PRN #20 tablet 11/01/16 11/07/16 Rx [[place] 7.5-325] Colchicine [Colcrys] 0.6 mg PO DAILY 11/07/16 11/07/16 History Labetalol HCl 100 mg PO BID 11/07/16 11/07/16 History Torsemide 20 mg PO DAILY 11/07/16 11/07/16 History cloNIDine HCl [Clonidine HCl] 0.1 mg PO TID 11/07/16 11/07/16 History Allergies Allergy/AdvReac Type Severity Reaction Status Date / Time No Known Allergies Allergy Verified 11/07/16 18:58 Medical,Surgical,& Family Hx - Medical History Cardio: History of: Hypertension Neurology: History of: Cerebrovascular Accident (2005) Endocrine: History of: Diabetes Mellitus (IDDM), Diabetes Mellitus (NIDDM), Dyslipidemia Renal: History of: Renal (Kidney) Cancer (RT.KIDNEY REMOVAL 2009), Dialysis, Renal Failure - Surgical History Cardiac Surgeries: Sugical HX of: Cardiac Catheterization HEENT Surgeries: Surgical HX of: Eye Surgery (Melo cataract Dr Layne) Abdominal Surgeries: Surgical HX of: Hernia Repair (x4) Orthopedic Surgeries: Surgical HX of;: Orthopedic Surgery (left) - Social History Smoking Status: Heavy tobacco smoker Review of Systems Constitutional: fatigue, no anorexia, no malaise Nose, mouth and throat: no headache(s) Cardiovascular: no chest pain at rest Exam - Vital Signs Vital signs: Period Temp Pulse Resp BP Sys/Bae Pulse Ox Last 24 Hr 97.9 F-99.5 F 70-83 18-20 118-211/59-91 94-100 - General Appearance General appearance: well-developed, frail EENT: ATNC Neck: supple Respiratory: clear Cardiology: regular rate, regular rhythm Gastrointestinal: normoactive bowel sounds, no tenderness Neurologic: alert and oriented x3 Psychiatric: mood/affect appropriate Results - Labs CBC & BMP: 11/09/16 04:41 11/09/16 04:41 Assessment and Plan (1) Hyperkalemia Status: Resolved Assessment and plan: This is now resolved. Current Visit: No (2) End stage renal failure on dialysis Status: Chronic Assessment and plan: Continue with scheduled hemodialysis. Patient is followed by Dr. Johnson. Current Visit: Yes (3) Hypertension Status: Chronic Current Visit: No
[2016-11-08] MEDS: MIRTAZAPINE 15 MG TABLET PO SCH (20:49)
[2016-11-09 05:08] LABS: Hematocrit 25.5 VOL% (35.7-47.0); Hemoglobin 8.4 GM/DL (12.0-16.0)
[2016-11-09 05:39] LABS: Albumin 2.6 G/DL (3.4-5.0); Calcium 6.8 MG/DL (8.5-10.1); Osmolality,Calculated 288.5 MOS/KG (273-304); Phosphorous 5.5 MG/DL (2.5-4.9); Potassium 5.2 MMOL/L (3.5-5.1)
[2016-11-09] MEDS: ENOXAPARIN 30 MG/0.3 ML SYRINGE SUBCUT SCH (09:42)
[2016-11-09] MEDS: amLODIPine 10 MG TABLET PO SCH (09:42)
[2016-11-09] MEDS: COLCHICINE 0.6 MG TABLET PO SCH (09:42)
[2016-11-09] MEDS: NEOMYCIN/POLYMYXIN/BACITRACIN OINT 0.9 GM PACK TOP SCH ×2 (09:42→21:11)
[2016-11-09] MEDS: clonazePAM 0.5 MG TABLET PO SCH ×2 (09:42→21:11)
[2016-11-09] MEDS: LABETALOL 100 MG TABLET PO SCH ×2 (09:42→21:11)
[2016-11-09] MEDS: AMITRIPTYLINE 10 MG TABLET PO PRN (09:42)
[2016-11-09] MEDS: TORSEMIDE 20 MG TABLET PO SCH (09:42)
[2016-11-09] MEDS: cloNIDine 0.1 MG TABLET PO SCH ×3 (09:43→21:11)
[2016-11-09] MEDS: NICOTINE 21 MG/24 HR PATCH TRANSDERM SCH (09:43)
--- NOTE | 2016-11-09 10:39 | Discharge Summary ---
Diagnosis - Discharge Diagnosis (1) Hyperkalemia Status: Acute (2) End stage renal failure on dialysis Status: Chronic (3) Right lower lobe pneumonia Status: Acute (4) Anemia Status: Acute (5) Tobacco abuse Status: Acute Discharge Plan - Discharge Data Disposition: Disch/Xfer to Snf Condition at Discharge: Stable Discharge Diet: heart healthy Activity: increase activity as tolerated Hygiene: may shower, other (Will need assistance with hygiene and activities of daily living as needed) Weight Bearing at Discharge: weight bear as tolerated Contact your physician if you experience:: fever over 101, Nausea/Vomiting, Shortness of breath, pain uncontrolled by pain medications - Discharge Medications Continue Lubiprostone [Amitiza] 24 mcg PO BID PRN PRN Reason: Constipation hydrALAZINE TAB [Apresoline Tab] 75 mg PO TID Mirtazapine 15 mg PO QPM Amitriptyline [Elavil] 10 mg PO QID PRN PRN Reason: Anxiety HYDROcodone/ACETAMIN 7.5-325 [[place] 7.5-325] 1 tablet PO Q6H PRN #20 tablet PRN Reason: Pain Torsemide 20 mg PO DAILY Labetalol HCl 100 mg PO BID Colchicine [Colcrys] 0.6 mg PO DAILY clonazePAM TAB [KlonoPIN] 0.5 mg PO BID amLODIPine [Norvasc] 10 mg PO DAILY cloNIDine HCl [Clonidine HCl] 0.1 mg PO TID - Follow Up or Referral - Forms/Instructions Exam - Constitutional Vitals: Period Temp Pulse Resp BP Sys/Bae Pulse Ox Last 24 Hr 96.6 F-99.0 F 74-82 18-22 130-188/64-81 95-99 General appearance: normal weight, no acute distress - Head Head exam: Present: normal inspection, normocephalic - Eye Eye exam: Present: EOMI Pupils: Present: FIORDALIZA - ENT ENT exam: Present: normal oropharynx - Respiratory Respiratory exam: Present: clear to auscultation bilaterally - Cardiovascular Cardiovascular exam: Present: regular rate and rhythm, other (Noted systolic murmur at the base no change from yesterday) - Extremities Exam Extremities exam: Present: full ROM - Neurological Exam Neurological exam: Present: alert, oriented X3, CN II-XII intact, other (Very cooperative today) Discharge Results Procedures and tests throughout hospitalization: Pending Orders 11/07/16 19:40 Blood Culture Stat 11/07/16 23:16 Sputum Culture and Gram Stain Routine Urine Culture Routine 11/08/16 10:21 Occult Blood, Stool Routine Labs on day of discharge: Labs from last 24 hours 11/09/16 11/09/16 11/08/16 04:41 04:41 Unknown WBC RBC Hgb 8.4 L D Hct 25.5 L MCV MCH MCHC RDW Plt Count MPV Neut % (Auto) Lymph % (Auto) Coal % (Auto) Eos % (Auto) Baso % (Auto) Neut # (Auto) Lymph # (Auto) Coal # (Auto) Eos # (Auto) Baso # (Auto) Total Counted Immature Gran % Nucleated RBC % Immature Gran # Segmented Neutrophils Lymphocytes Monocytes Nucleated RBCs # Platelet Estimate Immature Plt Fraction Hypochromasia Macrocytosis Sodium 139 Potassium 5.2 H Chloride 107 Carbon Dioxide 21 Anion Gap 16.2 H BUN 47 H D Creatinine 7.20 H GFR Calculation 7 BUN/Creatinine Ratio 6.00 Glucose 103 Calculated Osmolality 288.5 Calcium 6.8 L Phosphorus 5.5 H Magnesium 2.0 Total Bilirubin AST ALT Alkaline Phosphatase Total Protein Albumin 2.6 L Globulin Albumin/Globulin Ratio Triglycerides Cholesterol LDL Cholesterol VLDL Cholesterol HDL Cholesterol Heart Disease Risk Ratio Blood Type A POSITIVE Antibody Screen Crossmatch 11/08/16 11/08/16 11/08/16 10:45 10:27 10:27 WBC 4.2 D RBC 2.09 L Hgb 6.7 L Hct 20.5 L MCV 98.1 MCH 32 MCHC 32.7 RDW 14.8 Plt Count 172 MPV 9.6 Neut % (Auto) 88.6 H Lymph % (Auto) 9.0 L Coal % (Auto) 1.7 Eos % (Auto) 0.0 Baso % (Auto) 0.0 Neut # (Auto) 3.7 Lymph # (Auto) 0.4 L Coal # (Auto) 0.1 L Eos # (Auto) 0.0 Baso # (Auto) 0.0 Total Counted 100 Immature Gran % 0.7 Nucleated RBC % 0.0 Immature Gran # 0.03 Segmented Neutrophils 90 H Lymphocytes 9 L Monocytes 1 L Nucleated RBCs # 0.00 Platelet Estimate Adequate Immature Plt Fraction 0.0 L Hypochromasia 1+ Macrocytosis Slight Sodium 140 Potassium 7.1 H* Chloride 108 H Carbon Dioxide 19 L Anion Gap 20.1 H BUN 81 H Creatinine 11.90 H GFR Calculation 4 BUN/Creatinine Ratio 6.00 Glucose 236 H Calculated Osmolality 310.4 H Calcium 5.8 L* Phosphorus Magnesium 2.1 Total Bilirubin < 0.39 AST 8 ALT 9 L Alkaline Phosphatase 104 Total Protein 5.7 L Albumin 2.6 L Globulin 3.1 Albumin/Globulin Ratio 0.8 L Triglycerides 91 Cholesterol 223 H LDL Cholesterol 116.0 VLDL Cholesterol 18.2 HDL Cholesterol 69 H Heart Disease Risk Ratio 3.23 Blood Type Antibody Screen Crossmatch 11/08/16 10:27 WBC RBC Hgb Hct MCV MCH MCHC RDW Plt Count MPV Neut % (Auto) Lymph % (Auto) Coal % (Auto) Eos % (Auto) Baso % (Auto) Neut # (Auto) Lymph # (Auto) Coal # (Auto) Eos # (Auto) Baso # (Auto) Total Counted Immature Gran % Nucleated RBC % Immature Gran # Segmented Neutrophils Lymphocytes Monocytes Nucleated RBCs # Platelet Estimate Immature Plt Fraction Hypochromasia Macrocytosis Sodium Potassium Chloride Carbon Dioxide Anion Gap BUN Creatinine GFR Calculation BUN/Creatinine Ratio Glucose Calculated Osmolality Calcium Phosphorus Magnesium Total Bilirubin AST ALT Alkaline Phosphatase Total Protein Albumin Globulin Albumin/Globulin Ratio Triglycerides Cholesterol LDL Cholesterol VLDL Cholesterol HDL Cholesterol Heart Disease Risk Ratio Blood Type A POSITIVE Antibody Screen Negative Crossmatch See Detail Preliminary micro results at discharge 11/07/16 19:40 Blood Culture - Preliminary Blood No growth at 1 day 11/07/16 19:40 Blood Culture - Preliminary Blood No growth at 1 day DS: Provider Date of admission: 11/07/16 21:53 Primary care physician: . No PCP Attending physician on admission: Lia Monte MD Consults: 11/07/16 23:16 Consult to Physical Therapy [CONS] Routine Reason for Physical Therapy: Evaluate and Treat Consult to Physician [CONS] Routine Comment: esrd on hd Consulting Provider: Gallito Huizar Jr. Consulting Provider Notified: Yes Consult to Specialist Group: Nephrology When should Consulting Provider be notified: In am Person Notified: MAVERICK Date Notified: 11/08/16 Time Notified: 08:02 Discharging clinician: José Miguel León MD
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
[2016-11-09] MEDS: MIRTAZAPINE 15 MG TABLET PO SCH (21:11)
--- NOTE | 2016-11-10 08:14 | Hospitalist Progress Note ---
<Martha Gonzalez - Last Filed: 11/10/16 08:12> Assessment and Plan (1) Tobacco abuse Status: Acute Assessment and plan: Nicotine patch ordered. Current Visit: Yes (2) End stage renal failure on dialysis Status: Chronic Assessment and plan: Hemodialysis this a.m. per nephrology order. Current Visit: Yes Hospitalist: Subjective Interval history: Patient seen and examined; chart reviewed. No significant overnight events reported per staff. Discharge placed on hold pending placement. Hemodialysis this a.m. per nephrology order. Exam - Constitutional Vitals: Period Temp Pulse Resp BP Sys/Bae Pulse Ox Last 24 Hr 97.3 F-99.3 F 72-97 18-20 122-158/56-93 94-100 General appearance: normal weight, no acute distress - Head Head exam: Present: normal inspection, normocephalic - Eye Eye exam: Present: EOMI. Absent: conjunctival injection Pupils: Present: FIORDALIZA, normal accommodation - ENT ENT exam: Present: normal exam, normal external ear exam, normal oropharynx - Neck Neck exam: Present: normal inspection. Absent: lymphadenopathy, meningismus, thyromegaly - Respiratory Respiratory exam: Present: clear to auscultation bilaterally. Absent: rales, rhonchi, stridor, wheezes - Cardiovascular Cardiovascular exam: Present: regular rate and rhythm. Absent: carotid bruit, diastolic murmur, gallop, JVD, rubs, systolic murmur - GI/Abdominal GI/Abdominal exam: Present: normal bowel sounds, soft - Extremities Exam Extremities exam: Present: normal inspection, normal capillary refill - Back Exam Back exam: Present: normal inspection - Neurological Exam Neurological exam: Present: alert, oriented X3, CN II-XII intact - Psychiatric Psychiatric exam: Present: normal affect, normal mood - Skin Skin exam: Present: normal color, warm, dry Results - Labs CBC & BMP: 11/09/16 04:41 11/09/16 04:41 Lab Results: I have reviewed the past 24 hour labs <Lia Monte - Last Filed: 11/10/16 09:07> Assessment and Plan (1) End stage renal failure on dialysis Status: Chronic Current Visit: Yes (2) Hypertension Status: Chronic Current Visit: No (3) Right lower lobe pneumonia Status: Acute Current Visit: Yes (4) Debility Status: Acute Current Visit: Yes (5) Tobacco abuse Status: Acute Current Visit: Yes Hospitalist: Subjective Interval history: Patient refused dialysis today. She states she doesn't feel like despite persuasion. Her hyperkalemia has improved today. We are awaiting placement at [facility].Her vitals are stable. Exam - Constitutional Vitals: Period Temp Pulse Resp BP Sys/Bae Pulse Ox Last 24 Hr 97.3 F-99.3 F 72-97 18-20 122-158/56-93 94-100 Results - Labs CBC & BMP: 11/09/16 04:41 11/09/16 04:41
[2016-11-10] MEDS: NICOTINE 21 MG/24 HR PATCH TRANSDERM SCH (08:59)
[2016-11-10] MEDS: cloNIDine 0.1 MG TABLET PO SCH ×3 (09:00→21:13)
[2016-11-10] MEDS: LABETALOL 100 MG TABLET PO SCH ×2 (09:00→21:13)
[2016-11-10] MEDS: amLODIPine 10 MG TABLET PO SCH (09:00)
[2016-11-10] MEDS: COLCHICINE 0.6 MG TABLET PO SCH (09:00)
[2016-11-10] MEDS: clonazePAM 0.5 MG TABLET PO SCH ×2 (09:00→21:13)
[2016-11-10] MEDS: TORSEMIDE 20 MG TABLET PO SCH (09:00)
[2016-11-10] MEDS: ENOXAPARIN 30 MG/0.3 ML SYRINGE SUBCUT SCH (09:01)
[2016-11-10] MEDS: NEOMYCIN/POLYMYXIN/BACITRACIN OINT 0.9 GM PACK TOP SCH ×2 (14:55→21:13)
--- NOTE | 2016-11-10 15:58 | Nephrology Progress Note ---
Nephrology - PN: Subj Interval history: Please note: I have not followed Ms. Tony in the past. She dialyzes in [facility] under the direction of cellular phone repairer from [place]. She was seen in the emergency room here by Dr. Huizar on 10/22/2016 at which time she left AMA. She returned the following day and was admitted with hyperkalemia after having missed dialysis several times. I saw her on 2016 and ordered dialysis. She was discharged the following day with instructions to adhere to her outpatient schedule in [place]. She did not do this and required readmission on 11/08/2016. She denies shortness of breath or GI symptoms today. She complains of musculoskeletal pain in her hip which she states is chronic. She has refused to go to dialysis today Exam (PN)-Nephrology - Vital Signs Vital signs: Period Temp Pulse Resp BP Sys/Bae Pulse Ox Last 24 Hr 97.3 F-99.3 F 71-80 18-22 122-186/56-79 94-97 Exam: ENT: Normal Cardiovascular: Regular rate and rhythm. No murmur rub or gallop Lungs: Clear Extremities: No edema - Lab 11/09/16 04:41 11/09/16 04:41 Most recent lab results Calcium 6.8 MG/DL (8.5-10.1) L 11/09/16 04:41 Phosphorus 5.5 MG/DL (2.5-4.9) H 11/09/16 04:41 Magnesium 2.0 MG/DL (1.8-2.4) 11/09/16 04:41 Assessment and Plan (1) End stage renal failure on dialysis Status: Chronic Assessment and plan: She refuses to go to dialysis today. I explained the risks of this including recurrent hyperkalemia, volume overload, and possible . I offered to call the dialysis nurse back to dialyze her this afternoon but she refuses. Current Visit: Yes (2) Hypertension Status: Chronic Current Visit: No (3) Medical non-compliance Status: Chronic Current Visit: No
[2016-11-10] MEDS: MIRTAZAPINE 15 MG TABLET PO SCH (21:13)
[2016-11-11 02:44] LABS: Basophils % 0.3 % (0.0-0.8); Eosinophils # 0.5 10*3/uL (0.0-0.87); Eosinophils % 4.8 % (0.00-10.9); Hematocrit 26.8 VOL% (35.7-47.0); Hemoglobin 8.8 GM/DL (12.0-16.0); Immature Granulocytes % 0.7 %; Immature Granulocytes Absolute 0.07 #; Lymphocytes # 2.6 10*3/uL (1.4-4.0); Lymphocytes % 27.5 % (21.3-54.2); Mean Corpuscular HGB Conc 32.8 GM/DL (32-36); Mean Corpuscular Hemoglobin 31 PG (27-34); Mean Corpuscular Volume 95.7 FL (87-102); Monocytes # 0.7 10*3/uL (0.11-0.8); Monocytes % 6.9 % (1.7-12.7); Neutrophils # 5.6 10*3/uL (1.4-7.4); Neutrophils % 59.8 % (38.7-73.9); Platelet Count 205 T/CUMM (130-400); Red Cell Distribution Width 15.5 % (9.3-17.3); White Blood Count 9.4 T/CUMM (4-12)
[2016-11-11] MEDS ORDERED: HYDROmorphone 2 MG/1 ML VIAL IV ONE (03:15)
[2016-11-11 03:21] LABS: Alanine Aminotransferase < 9 U/L (13-56); Albumin 2.4 G/DL (3.4-5.0); Alkaline Phosphatase 84 U/L (45-117); Aspartate Amino Transferase 12 U/L (0-37); Blood Urea Nitrogen 65 MG/DL (7-18); Calcium 5.9 MG/DL (8.5-10.1); Glucose 115 MG/DL (74-106); Magnesium 1.8 MG/DL (1.8-2.4); Osmolality,Calculated 298.4 MOS/KG (273-304); Phosphorous 6.2 MG/DL (2.5-4.9); Sodium 140 MMOL/L (136-145); Total Protein 5.3 G/DL (6.4-8.3)
[2016-11-11] MEDS: AMITRIPTYLINE 10 MG TABLET PO PRN (03:21)
--- NOTE | 2016-11-11 07:05 | Event Note ---
Patient was reported to have suffered fall last night and complaining of left buttock pain. I had verbally ordered x-ray lumbosacral spine. There was no history of head trauma. Patient continued to have pain left buttock report of the lumbar spine is not available but I do not obviously see any gross acute abnormality . Patient was seen and noted to have a swelling/hematoma left buttock. It has reported to be increased in size over past couple hours. She also has some left hip bony prominence laterally I will order CT scan pelvis to evaluate. Result has to be followed up by his hospitalist in the morning
--- NOTE | 2016-11-11 08:08 | CT Report ---
CT abdomen pelvis wo con Indication: Hematoma of left buttock. Comparison: None. Technique: CT of the abdomen and pelvis was performed without administration of intravenous contrast. The CT examination was performed using one or more of the following dose reduction techniques: Automatic exposure control, adjustment of the mA and kV according to patient size, use of acute or iterative reconstruction techniques. Findings: Small right-sided and left-sided pleural effusion are present. Calcified granulomas are suggested within the right lung and left lung. Coronary artery calcifications as well as calcifications of the bronchial pagan are present. Atelectatic changes are noted within lung bases. Punctate calcifications present within the liver and spleen could reflect sequelae of previous granulomatous disease. There is a focal hypodense lesion of the left hepatic lobe measuring up to 15 mm. Further evaluation is not possible secondary to lack of intravenous contrast. Gallbladder demonstrates layering stones versus curvilinear calcification of the wall within the dependent portion of the gallbladder fundus. Extrahepatic bile duct appears minimally enlarged. Right kidney is not identified. Left kidney demonstrates a subtle hypodense lesion within the lateral posterior lateral cortex mid to lower kidney. This may represent cysts. Diffuse intimal calcification of the aorta is demonstrated. The stomach, duodenum, small bowel, and large bowel demonstrate no significant abnormalities. Anasarca is demonstrated. Dermal thickening of the left breast is present. Additionally, there appears to be bilateral injection granulomas within the flanks. Subcutaneous focus of increased attenuation measuring 5.4 x 3.7 cm overlying the left hip is compatible subcutaneous hematoma. Additionally, there is a partially imaged hyperattenuating focus measuring 7.9 x 5.1 cm within the left buttock is also considered compatible with given history of hematoma. Femoral acetabular joint degenerative changes bilaterally of moderate. No fractures of the proximal femurs, pelvis, sacrum, or visualized lumbar spine are demonstrated. The lower thoracic spine as well as visualized rib cage appears intact. Impression: 1. Areas of hyperattenuating subcutaneous fat as detailed above adjacent to the left greater trochanter and within the left buttock are considered compatible with given history of hematoma. 2. Diffuse anasarca is present. 3. Hypodense lesion of the left kidney may reflect cyst. 4. Layering gallstones versus gallbladder wall calcification are present without specific features of acute cholecystitis. 11/11/2016 8:00 AM PROCEDURE INTERPRETED AT [facility] DEPARTMENT OF RADIOLOGY Final Report Signed by: Dr. Maurice Wills
--- NOTE | 2016-11-11 09:05 | XRay Report ---
XR lumbar spine AP/LAT Indication: Fall. Comparison: None. Technique: AP and lateral images of the lumbar spine were performed. Additional spot lateral image of the lumbar sacral junction was obtained. Findings: Grade 1 anterolisthesis of L4 on L5 is demonstrated. Vertebral body heights are well maintained throughout the lumbar spine. Facet arthropathy is present throughout the lumbar spine most prevalent at L4-5 and L5-S1. Calcification of the aorta is present. The bowel gas pattern demonstrates no significant abnormality. Moderate bilateral femoral acetabular joint degenerative changes are present. Multiple surgical clips project within the right upper quadrant. Impression: 1. Multilevel degenerative changes of the lumbar spine are present without discrete evidence of acute fracture. 11/11/2016 8:52 AM PROCEDURE INTERPRETED AT [facility] DEPARTMENT OF RADIOLOGY Final Report Signed by: Dr. Maurice Wills
--- NOTE | 2016-11-11 09:10 | Hospitalist Progress Note ---
<Kylie Gonzalezgarth - Last Filed: 11/11/16 09:08> Assessment and Plan (1) Tobacco abuse Status: Acute Assessment and plan: Nicotine patch ordered. Current Visit: Yes (2) End stage renal failure on dialysis Status: Chronic Assessment and plan: Hemodialysis this a.m. per nephrology order. Current Visit: Yes Hospitalist: Subjective Interval history: Patient seen and examined; chart reviewed. Patient sustained a fall on on last night and complained of left buttock pain. X-ray of the lumbar spine was unremarkable for evidence of acute fracture. CT abdomen and pelvis Exam - Constitutional Vitals: Period Temp Pulse Resp BP Sys/Bae Pulse Ox Last 24 Hr 98.0 F-99.3 F 76-107 18-22 146-186/63-79 94-99 Results - Labs CBC & BMP: 11/11/16 01:50 11/11/16 01:50 <Lia Monte - Last Filed: 11/11/16 09:40> Assessment and Plan (1) End stage renal failure on dialysis Status: Chronic Current Visit: Yes (2) Hypertension Status: Chronic Current Visit: No (3) Right lower lobe pneumonia Status: Acute Current Visit: Yes (4) Debility Status: Acute Current Visit: Yes (5) Tobacco abuse Status: Acute Current Visit: Yes Hospitalist: Subjective Interval history: Patient threw her breakfast tray on the floor this am because she didnt get what she wanted. CT showed areas of hyperattenuating subcutaneous fat as detailed above adjacent to the left greater trochanter and within the left buttock are considered compatible with given history of hematoma. Exam - Constitutional Vitals: Period Temp Pulse Resp BP Sys/Bae Pulse Ox Last 24 Hr 98.0 F-99.3 F 76-107 18-22 146-186/63-79 94-99 Results - Labs CBC & BMP: 11/11/16 01:50 11/11/16 01:50
[2016-11-11] MEDS: NICOTINE 21 MG/24 HR PATCH TRANSDERM SCH (09:37)
[2016-11-11] MEDS: amLODIPine 10 MG TABLET PO SCH ×2 (09:37→09:39)
[2016-11-11] MEDS: TORSEMIDE 20 MG TABLET PO SCH ×2 (09:38→09:39)
[2016-11-11] MEDS: COLCHICINE 0.6 MG TABLET PO SCH ×2 (09:38→09:39)
[2016-11-11] MEDS: clonazePAM 0.5 MG TABLET PO SCH ×3 (09:39→21:38)
[2016-11-11] MEDS: cloNIDine 0.1 MG TABLET PO SCH ×4 (09:39→21:39)
[2016-11-11] MEDS: ENOXAPARIN 30 MG/0.3 ML SYRINGE SUBCUT SCH (09:39)
[2016-11-11] MEDS: LABETALOL 100 MG TABLET PO SCH ×3 (09:39→21:39)
[2016-11-11] MEDS: SODIUM POLYSTYRENE SULFATE 15 GM/60 ML BOTTLE PO ONE ×2 (11:20→11:28)
[2016-11-11] MEDS: NEOMYCIN/POLYMYXIN/BACITRACIN OINT 0.9 GM PACK TOP SCH ×2 (12:01→21:39)
--- NOTE | 2016-11-11 20:58 | Nephrology Progress Note ---
Nephrology - PN: Subj Interval history: She is awake and alert. Nurses report she is refusing medications Exam (PN)-Nephrology - Vital Signs Vital signs: Period Temp Pulse Resp BP Sys/Bae Pulse Ox Last 24 Hr 97.9 F-98.3 F 77-107 18-22 146-173/63-82 94-99 Exam: ENT: Normal Cardiovascular: Regular rate and rhythm. No murmur rub or gallop Lungs: Clear Extremities: 1+ edema - Lab 11/11/16 01:50 11/11/16 01:50 Most recent lab results Calcium 5.9 MG/DL (8.5-10.1) L 11/11/16 01:50 Phosphorus 6.2 MG/DL (2.5-4.9) H 11/11/16 01:50 Magnesium 1.8 MG/DL (1.8-2.4) 11/11/16 01:50 Assessment and Plan (1) End stage renal failure on dialysis Status: Chronic Assessment and plan: She is hyperkalemic. She refuses dialysis today. This will be treated with Kayexalate Current Visit: Yes (2) Hypertension Status: Chronic Current Visit: No (3) Medical non-compliance Status: Chronic Current Visit: No
[2016-11-11] MEDS: MIRTAZAPINE 15 MG TABLET PO SCH (21:40)
[2016-11-12] MEDS: NICOTINE 21 MG/24 HR PATCH TRANSDERM SCH (09:40)
[2016-11-12] MEDS: COLCHICINE 0.6 MG TABLET PO SCH (09:41)
[2016-11-12] MEDS: LABETALOL 100 MG TABLET PO SCH ×2 (09:41→21:15)
[2016-11-12] MEDS: clonazePAM 0.5 MG TABLET PO SCH ×2 (09:41→21:15)
[2016-11-12] MEDS: amLODIPine 10 MG TABLET PO SCH (09:41)
[2016-11-12] MEDS: NEOMYCIN/POLYMYXIN/BACITRACIN OINT 0.9 GM PACK TOP SCH ×2 (09:41→21:15)
[2016-11-12] MEDS: TORSEMIDE 20 MG TABLET PO SCH (09:41)
[2016-11-12] MEDS: cloNIDine 0.1 MG TABLET PO SCH ×3 (09:41→21:15)
[2016-11-12] MEDS: ENOXAPARIN 30 MG/0.3 ML SYRINGE SUBCUT SCH (09:41)
--- NOTE | 2016-11-12 09:52 | Hospitalist Progress Note ---
Assessment and Plan (1) End stage renal failure on dialysis Status: Chronic Assessment and plan: She refused her last dialysis in the hospital, hopefully she will go for session in am Plan Continue to encourage dialysis Current Visit: Yes (2) Hypertension Status: Chronic Assessment and plan: will add Losartan, follow response Current Visit: No (3) Right lower lobe pneumonia Status: Acute Assessment and plan: continue Levaquin po ,BC- negative so far Current Visit: Yes (4) Debility Status: Acute Assessment and plan: awaiting Michele Wan's response Current Visit: Yes (5) Tobacco abuse Status: Acute Assessment and plan: she has been counseled to quit. -will continue with Nicotine patch Current Visit: Yes (6) Hyperkalemia Status: Acute Assessment and plan: due to non compliance to HD Plan Kayexalate x 1 BMP in am. Current Visit: Yes (7) Hip hematoma, left Status: Acute Assessment and plan: due to fall, slowly improving Continue with pain meds, H/H monitoring Current Visit: Yes Hospitalist: Subjective Interval history: Patient complains of pain around her left hip where she has her hematoma. We are waiting for response from Michele Wan today. Exam - Constitutional Vitals: Period Temp Pulse Resp BP Sys/Bae Pulse Ox Last 24 Hr 97.9 F-98.6 F 71-104 18-22 150-161/67-84 94-99 General appearance: no acute distress - Head Head exam: Present: normal inspection - Neck Neck exam: Present: normal inspection - Respiratory Respiratory exam: Present: clear to auscultation bilaterally - Cardiovascular Cardiovascular exam: Present: regular rate and rhythm - GI/Abdominal GI/Abdominal exam: Present: normal bowel sounds - Extremities Exam Extremities exam: Present: other (left hip hematoma) - Neurological Exam Neurological exam: Present: alert, oriented X3 Results - Labs CBC & BMP: 11/11/16 01:50 11/11/16 01:50 Lab Results: I have reviewed the past 24 hour labs
[2016-11-12] MEDS ORDERED: LEVOFLOXACIN 500 MG TABLET PO ONE (10:00)
[2016-11-12] MEDS ORDERED: SODIUM POLYSTYRENE SULFATE 15 GM/60 ML BOTTLE PO STA (10:00)
[2016-11-12] MEDS: LOSARTAN 25 MG TABLET PO SCH (12:47)
[2016-11-12] MEDS: MIRTAZAPINE 15 MG TABLET PO SCH (21:15)
[2016-11-13] MEDS: AMITRIPTYLINE 10 MG TABLET PO PRN (00:07)
[2016-11-13 05:04] LABS: Basophils % 0.1 % (0.0-0.8); Eosinophils # 0.4 10*3/uL (0.0-0.87); Eosinophils % 4.8 % (0.00-10.9); Hematocrit 23.5 VOL% (35.7-47.0); Hemoglobin 7.5 GM/DL (12.0-16.0); Immature Granulocytes % 0.5 %; Immature Granulocytes Absolute 0.04 #; Lymphocytes # 1.9 10*3/uL (1.4-4.0); Lymphocytes % 22.2 % (21.3-54.2); Mean Corpuscular HGB Conc 31.9 GM/DL (32-36); Mean Corpuscular Hemoglobin 31 PG (27-34); Mean Corpuscular Volume 96.7 FL (87-102); Mean Platelet Volume 9.7 FL (9.6-12.0); Monocytes # 0.7 10*3/uL (0.11-0.8); Neutrophils # 5.5 10*3/uL (1.4-7.4); Neutrophils % 64.4 % (38.7-73.9); Platelet Count 190 T/CUMM (130-400); Red Blood Count 2.43 MC/CUMM (3.8-5.5); White Blood Count 8.6 T/CUMM (4-12)
[2016-11-13 05:18] LABS: Osmolality,Calculated 311.1 MOS/KG (273-304)
[2016-11-13 05:23] LABS: Potassium 6.4 MMOL/L (3.5-5.1)
[2016-11-13 07:28] VITALS: BP 154/64
[2016-11-13] MEDS: cloNIDine 0.1 MG TABLET PO SCH ×2 (08:56→15:24)
[2016-11-13] MEDS: LABETALOL 100 MG TABLET PO SCH (08:56)
[2016-11-13] MEDS: TORSEMIDE 20 MG TABLET PO SCH (08:56)
[2016-11-13] MEDS: amLODIPine 10 MG TABLET PO SCH (08:56)
[2016-11-13] MEDS: clonazePAM 0.5 MG TABLET PO SCH (08:56)
[2016-11-13] MEDS: COLCHICINE 0.6 MG TABLET PO SCH (08:56)
[2016-11-13] MEDS: LOSARTAN 25 MG TABLET PO SCH (08:56)
[2016-11-13] MEDS: NICOTINE 21 MG/24 HR PATCH TRANSDERM SCH (08:57)
[2016-11-13] MEDS: NEOMYCIN/POLYMYXIN/BACITRACIN OINT 0.9 GM PACK TOP SCH (09:01)
[2016-11-13] MEDS: ENOXAPARIN 30 MG/0.3 ML SYRINGE SUBCUT SCH (09:01)
--- NOTE | 2016-11-13 09:37 | Discharge Summary ---
Hospital Course - Hospital Course Hospital Course: This is a chronically ill 66-year-old female that presented to the ED at [facility] on November 07, 2016 for evaluation of a nonspecific complaint. The patient has a long and complex medical history significant for hypertension, cerebrovascular accident, insulin-dependent diabetes mellitus, renal cancer, current nicotine addiction, and end-stage renal disease. Patient surgical history significant for cardiac catheterization , bilateral cataract removal, multiple hernia repairs, left shoulder surgery, and right nephrectomy. Apparently, the patient was brought to the ED at [facility] after the department of human resources received a call from a social services at [facility] on the day of presentation regarding the patient's current condition. The patient reported a recent fall last week in which she was evaluated and advised that she needed hip replacement. The patient reported that she has had issues with transportation and has been unable to meet her hemodialysis appointments. She reports that her who generally takes her has been ill and is in the hospital. The patient has required multiple hospitalizations in recent months due to her failure to adhere to her dialysis regimen. The patient was subsequently admitted to [facility] for continuation of care. A nephrology consultation was requested at the time of admission to assist in the management of the patient's hemodialysis. At the time of admission, the patient was noted to be grossly anemic with a hemoglobin noted at 6.2 and hematocrit at 19.3. The patient subsequently underwent emergent dialysis and blood transfusion on the direction of nephrology. The patient's condition gradually improved. The patient's condition is stable. The patient's hemoglobin and hematocrit are noted aat 7.5/23.5 . Her DC was held for few more days because we were trying to get placement. She has experienced no significant overnight events. She has refused some of her medications especially Kayexalate and also refused dialysis. We will try to persuade her to get her HD today prior to sending to [facility]. - Time spent with patient Time with patient DS: Greater than 30 minutes (Time spent greater than 30mins) Diagnosis - Discharge Diagnosis (1) End stage renal failure on dialysis Status: Chronic (2) Hypertension Status: Chronic (3) Right lower lobe pneumonia Status: Acute (4) Debility Status: Acute (5) Tobacco abuse Status: Acute (6) Hyperkalemia Status: Acute (7) Hip hematoma, left Status: Acute Discharge Plan - Discharge Data Disposition: Disch/Xfer to Snf - Discharge Medications Continue Lubiprostone [Amitiza] 24 mcg PO BID PRN PRN Reason: Constipation hydrALAZINE TAB [Apresoline Tab] 75 mg PO TID Mirtazapine 15 mg PO QPM Amitriptyline [Elavil] 10 mg PO QID PRN PRN Reason: Anxiety HYDROcodone/ACETAMIN 7.5-325 [[place] 7.5-325] 1 tablet PO Q6H PRN #20 tablet PRN Reason: Pain Torsemide 20 mg PO DAILY Labetalol HCl 100 mg PO BID Colchicine [Colcrys] 0.6 mg PO DAILY clonazePAM TAB [KlonoPIN] 0.5 mg PO BID amLODIPine [Norvasc] 10 mg PO DAILY cloNIDine HCl [Clonidine HCl] 0.1 mg PO TID - Follow Up or Referral - Forms/Instructions Exam - Constitutional Vitals: Period Temp Pulse Resp BP Sys/Bae Pulse Ox Last 24 Hr 98.0 F-98.4 F 70-89 18-22 142-178/64-81 95-99 General appearance: no acute distress - Head Head exam: Present: normal inspection - Respiratory Respiratory exam: Present: clear to auscultation bilaterally - Cardiovascular Cardiovascular exam: Present: regular rate and rhythm - GI/Abdominal GI/Abdominal exam: Present: normal bowel sounds - Extremities Exam Extremities exam: Present: normal inspection - Neurological Exam Neurological exam: Present: alert, oriented X3 Discharge Results Procedures and tests throughout hospitalization: Pending Orders 11/08/16 10:21 Occult Blood, Stool Routine Labs on day of discharge: Labs from last 24 hours 11/13/16 11/13/16 03:08 03:08 WBC 8.6 RBC 2.43 L Hgb 7.5 L Hct 23.5 L MCV 96.7 MCH 31 MCHC 31.9 L RDW 15.0 Plt Count 190 MPV 9.7 Neut % (Auto) 64.4 Lymph % (Auto) 22.2 [place] % (Auto) 8.0 Eos % (Auto) 4.8 Baso % (Auto) 0.1 Neut # (Auto) 5.5 Lymph # (Auto) 1.9 [place] # (Auto) 0.7 Eos # (Auto) 0.4 Baso # (Auto) 0.0 Immature Gran % 0.5 Nucleated RBC % 0.0 Immature Gran # 0.04 Nucleated RBCs # 0.00 Immature Plt Fraction 0.0 Sodium 142 Potassium 6.4 H* Chloride 112 H Carbon Dioxide 19 L Anion Gap 17.4 H BUN 91 H Creatinine 9.40 H GFR Calculation 5 BUN/Creatinine Ratio 9.00 Glucose 114 H Calculated Osmolality 311.1 H Calcium 6.0 L DS: Provider Date of admission: 11/07/16 21:53 Primary care physician: . No PCP Attending physician on admission: Lia Monte MD Consults: 11/07/16 23:16 Consult to Physical Therapy [CONS] Routine Reason for Physical Therapy: Evaluate and Treat Consult to Physician [CONS] Routine Comment: esrd on hd Consulting Provider: Brett Johnson Consulting Provider Notified: Yes Consult to Specialist Group: Nephrology When should Consulting Provider be notified: In am Person Notified: MAVERICK Date Notified: 11/08/16 Time Notified: 08:02 11/11/16 10:31 Consult to Case Mgmt/Social Srvs [CONS] Routine Reason for Case Mgmt/Social Srvs: Home Health Swingbed/SNF/Fpc Discharging clinician: Lia Monte MD
[2016-11-14] MEDS ORDERED: LEVOFLOXACIN 250 MG TABLET PO SCH (10:00)
== END 2016-11-13 15:00 | DRG 193 ==
LOC: EDUNIT# → N.ED 18:44 → N.EDINP 21:53 → SUATTDRO 21:53 → N.2E 22:40
PROVIDERS: ADMIT Internal Medicine; ATTEND Internal Medicine

== ENCOUNTER 2017-01-07 14:55 | Inpatient (IN) ==
[2017-01-07] MEDS ORDERED: ONDANSETRON 4 MG/2 ML VIAL IV STA (15:47)
[2017-01-07] MEDS ORDERED: ASPIRIN 325 MG TABLET PO STA (15:47)
[2017-01-07] MEDS ORDERED: NITROGLYCERIN 2% OINT 1 INCH/GM PACK TOP STA (15:47)
[2017-01-07] MEDS ORDERED: MORPHINE 2 MG/1 ML SYRINGE IV STA (15:47)
[2017-01-07 15:56] LABS: Basophils % 0.4 % (0.0-0.8); Eosinophils # 0.3 10*3/uL (0.0-0.87); Eosinophils % 3.6 % (0.00-10.9); Hematocrit 34.7 VOL% (35.7-47.0); Hemoglobin 11.4 GM/DL (12.0-16.0); Immature Granulocytes % 0.4 %; Immature Granulocytes Absolute 0.03 #; Lymphocytes # 1.8 10*3/uL (1.4-4.0); Lymphocytes % 25.4 % (21.3-54.2); Mean Corpuscular HGB Conc 32.9 GM/DL (32-36); Mean Corpuscular Hemoglobin 30 PG (27-34); Mean Corpuscular Volume 91.1 FL (87-102); Mean Platelet Volume 9.9 FL (9.6-12.0); Monocytes # 0.5 10*3/uL (0.11-0.8); Monocytes % 7.4 % (1.7-12.7); Neutrophils # 4.3 10*3/uL (1.4-7.4); Neutrophils % 62.8 % (38.7-73.9); Platelet Count 260 T/CUMM (130-400); Red Blood Count 3.81 MC/CUMM (3.8-5.5); Red Cell Distribution Width 18.8 % (9.3-17.3); White Blood Count 6.9 T/CUMM (4-12)
[2017-01-07] MEDS ORDERED: NITROGLYCERIN 2% OINT 1 INCH/GM PACK TOP ONE (15:56)
[2017-01-07] MEDS ORDERED: ASPIRIN 325 MG TABLET ONE (15:56)
[2017-01-07] MEDS ORDERED: MORPHINE 2 MG/1 ML SYRINGE ONE (15:56)
[2017-01-07] MEDS ORDERED: ONDANSETRON 4 MG/2 ML VIAL ONE (15:56)
[2017-01-07 16:08] LABS: INR 1.1; PT Patient Result 11.2 SECS
[2017-01-07 16:13] LABS: Albumin 3.2 G/DL (3.4-5.0); Bilirubin,Total 0.7 MG/DL (0.2-1.0); Calcium 7.9 MG/DL (8.5-10.1); Magnesium 2.1 MG/DL (1.8-2.4); Osmolality,Calculated 294.4 MOS/KG (273-304); Potassium 5.8 MMOL/L (3.5-5.1); Total Protein 6.4 G/DL (6.4-8.3)
[2017-01-07 16:15] LABS: Troponin I Only 0.159 NG/ML (0.00-0.045)
[2017-01-07] MEDS ORDERED: CALCIUM CHLORIDE 1,000 MG/10 ML SYRINGE IV STA (17:06)
[2017-01-07] MEDS ORDERED: CALCIUM CHLORIDE 1,000 MG/10 ML SYRINGE IV ONE (17:36)
[2017-01-07] MEDS ORDERED: hydrALAZINE 20 MG/1 ML VIAL IV PRN (18:19)
[2017-01-07] MEDS ORDERED: ONDANSETRON 4 MG/2 ML VIAL IV PRN (18:19)
[2017-01-07] MEDS ORDERED: MORPHINE 2 MG/1 ML SYRINGE IV PRN (18:19)
[2017-01-07] MEDS ORDERED: SODIUM POLYSTYRENE SULFATE 15 GM/60 ML BOTTLE PO ONE (20:49)
[2017-01-07] MEDS: COLCHICINE 0.6 MG TABLET PO SCH (21:22)
[2017-01-07] MEDS: LABETALOL 100 MG TABLET PO SCH (21:23)
[2017-01-07] MEDS: AMITRIPTYLINE 10 MG TABLET PO PRN (21:30)
[2017-01-08 05:41] LABS: Basophils % 0.4 % (0.0-0.8); Eosinophils # 0.3 10*3/uL (0.0-0.87); Eosinophils % 4.1 % (0.00-10.9); Hematocrit 30.6 VOL% (35.7-47.0); Hemoglobin 9.9 GM/DL (12.0-16.0); Immature Granulocytes % 0.5 %; Immature Granulocytes Absolute 0.04 #; Lymphocytes # 2.2 10*3/uL (1.4-4.0); Mean Corpuscular HGB Conc 32.4 GM/DL (32-36); Mean Corpuscular Hemoglobin 30 PG (27-34); Mean Platelet Volume 9.5 FL (9.6-12.0); Monocytes # 0.6 10*3/uL (0.11-0.8); Monocytes % 8.4 % (1.7-12.7); Neutrophils # 4.2 10*3/uL (1.4-7.4); Neutrophils % 56.6 % (38.7-73.9); Platelet Count 192 T/CUMM (130-400); Red Blood Count 3.29 MC/CUMM (3.8-5.5); Red Cell Distribution Width 18.8 % (9.3-17.3); White Blood Count 7.4 T/CUMM (4-12)
[2017-01-08 06:10] LABS: Calcium 7.4 MG/DL (8.5-10.1); Osmolality,Calculated 296.3 MOS/KG (273-304); Potassium 5.8 MMOL/L (3.5-5.1)
[2017-01-08] MEDS: SODIUM BICARBONATE 650 MG TABLET PO SCH (09:06)
[2017-01-08] MEDS: LABETALOL 100 MG TABLET PO SCH ×2 (09:06→21:30)
[2017-01-08] MEDS: COLCHICINE 0.6 MG TABLET PO SCH ×2 (09:06→21:30)
[2017-01-08] MEDS: SERTRALINE 25 MG TABLET PO SCH (09:06)
[2017-01-08] MEDS: PANTOPRAZOLE 40 MG TABLET PO SCH (09:06)
[2017-01-08] MEDS: FOLIC ACID 1 MG TABLET PO SCH (09:06)
[2017-01-08] MEDS ORDERED: SODIUM POLYSTYRENE SULFATE 15 GM/60 ML BOTTLE PO ONE (11:26)
[2017-01-08] MEDS: TORSEMIDE 20 MG TABLET PO SCH (11:39)
[2017-01-08] MEDS: AMITRIPTYLINE 10 MG TABLET PO PRN (21:38)
[2017-01-09 05:16] LABS: Basophils % 0.5 % (0.0-0.8); Eosinophils # 0.3 10*3/uL (0.0-0.87); Hematocrit 27.9 VOL% (35.7-47.0); Hemoglobin 9.3 GM/DL (12.0-16.0); Immature Granulocytes % 0.3 %; Immature Granulocytes Absolute 0.02 #; Lymphocytes % 31.9 % (21.3-54.2); Mean Corpuscular HGB Conc 33.3 GM/DL (32-36); Mean Corpuscular Hemoglobin 31 PG (27-34); Mean Corpuscular Volume 91.5 FL (87-102); Mean Platelet Volume 9.7 FL (9.6-12.0); Monocytes # 0.4 10*3/uL (0.11-0.8); Monocytes % 6.7 % (1.7-12.7); Neutrophils # 3.5 10*3/uL (1.4-7.4); Neutrophils % 56.6 % (38.7-73.9); Platelet Count 141 T/CUMM (130-400); Red Blood Count 3.05 MC/CUMM (3.8-5.5); Red Cell Distribution Width 18.6 % (9.3-17.3); White Blood Count 6.3 T/CUMM (4-12)
[2017-01-09 06:03] LABS: Calcium 7.2 MG/DL (8.5-10.1); Osmolality,Calculated 288.1 MOS/KG (273-304); Potassium 4.4 MMOL/L (3.5-5.1)
[2017-01-09] MEDS: PANTOPRAZOLE 40 MG TABLET PO SCH (08:04)
[2017-01-09] MEDS: TORSEMIDE 20 MG TABLET PO SCH (08:04)
[2017-01-09] MEDS: FOLIC ACID 1 MG TABLET PO SCH (08:04)
[2017-01-09] MEDS: SODIUM BICARBONATE 650 MG TABLET PO SCH (08:04)
[2017-01-09] MEDS: LABETALOL 100 MG TABLET PO SCH ×2 (08:04→20:27)
[2017-01-09] MEDS: COLCHICINE 0.6 MG TABLET PO SCH ×2 (08:04→20:27)
[2017-01-09] MEDS: SERTRALINE 25 MG TABLET PO SCH (08:04)
[2017-01-09] MEDS ORDERED: TUBERCULIN SKIN TEST 0.1 ML SYRINGE INTRADERM ONE (12:00)
[2017-01-10] MEDS: AMITRIPTYLINE 10 MG TABLET PO PRN (01:03)
[2017-01-10 06:26] LABS: Basophils % 0.2 % (0.0-0.8); Eosinophils # 0.3 10*3/uL (0.0-0.87); Eosinophils % 5.4 % (0.00-10.9); Immature Granulocytes % 0.4 %; Immature Granulocytes Absolute 0.02 #; Lymphocytes # 2.2 10*3/uL (1.4-4.0); Lymphocytes % 41.6 % (21.3-54.2); Mean Corpuscular HGB Conc 32.1 GM/DL (32-36); Mean Corpuscular Hemoglobin 30 PG (27-34); Mean Platelet Volume 10.1 FL (9.6-12.0); Monocytes # 0.6 10*3/uL (0.11-0.8); Monocytes % 10.3 % (1.7-12.7); Neutrophils # 2.3 10*3/uL (1.4-7.4); Neutrophils % 42.1 % (38.7-73.9); Platelet Count 135 T/CUMM (130-400); Red Blood Count 3.01 MC/CUMM (3.8-5.5); Red Cell Distribution Width 18.4 % (9.3-17.3); White Blood Count 5.3 T/CUMM (4-12)
[2017-01-10 06:55] LABS: Calcium 7.1 MG/DL (8.5-10.1); Osmolality,Calculated 289.3 MOS/KG (273-304); Potassium 4.7 MMOL/L (3.5-5.1)
[2017-01-10] MEDS: SODIUM BICARBONATE 650 MG TABLET PO SCH (08:10)
[2017-01-10] MEDS: COLCHICINE 0.6 MG TABLET PO SCH ×2 (08:10→21:21)
[2017-01-10] MEDS: SERTRALINE 25 MG TABLET PO SCH (08:10)
[2017-01-10] MEDS: TORSEMIDE 20 MG TABLET PO SCH (08:10)
[2017-01-10] MEDS: LABETALOL 100 MG TABLET PO SCH ×2 (08:11→21:21)
[2017-01-10] MEDS: PANTOPRAZOLE 40 MG TABLET PO SCH (08:11)
[2017-01-10] MEDS: FOLIC ACID 1 MG TABLET PO SCH (08:11)
[2017-01-11] MEDS: SODIUM BICARBONATE 650 MG TABLET PO SCH (15:20)
[2017-01-11] MEDS: COLCHICINE 0.6 MG TABLET PO SCH ×2 (15:20→20:45)
[2017-01-11] MEDS: FOLIC ACID 1 MG TABLET PO SCH (15:21)
[2017-01-11] MEDS: LABETALOL 100 MG TABLET PO SCH ×2 (15:21→20:46)
[2017-01-11] MEDS: PANTOPRAZOLE 40 MG TABLET PO SCH (15:21)
[2017-01-11] MEDS: TORSEMIDE 20 MG TABLET PO SCH (15:21)
[2017-01-11] MEDS: SERTRALINE 25 MG TABLET PO SCH (15:22)
[2017-01-11] MEDS: AMITRIPTYLINE 10 MG TABLET PO PRN (20:45)
[2017-01-11] MEDS: ASCORBIC ACID 500 MG TABLET PO SCH (20:45)
[2017-01-12 05:22] LABS: Basophils % 0.2 % (0.0-0.8); Eosinophils # 0.3 10*3/uL (0.0-0.87); Eosinophils % 5.7 % (0.00-10.9); Hematocrit 27.7 VOL% (35.7-47.0); Hemoglobin 9.1 GM/DL (12.0-16.0); Immature Granulocytes % 0.2 %; Immature Granulocytes Absolute 0.01 #; Lymphocytes # 2.1 10*3/uL (1.4-4.0); Lymphocytes % 41.8 % (21.3-54.2); Mean Corpuscular HGB Conc 32.9 GM/DL (32-36); Mean Corpuscular Hemoglobin 31 PG (27-34); Mean Corpuscular Volume 93.3 FL (87-102); Monocytes # 0.5 10*3/uL (0.11-0.8); Neutrophils # 2.1 10*3/uL (1.4-7.4); Neutrophils % 42.1 % (38.7-73.9); Platelet Count 108 T/CUMM (130-400); Red Blood Count 2.97 MC/CUMM (3.8-5.5); Red Cell Distribution Width 18.1 % (9.3-17.3); White Blood Count 4.9 T/CUMM (4-12)
[2017-01-12 05:55] LABS: Alanine Aminotransferase < 9 U/L (13-56); Albumin 2.5 G/DL (3.4-5.0); Alkaline Phosphatase 112 U/L (45-117); Aspartate Amino Transferase 11 U/L (0-37); Blood Urea Nitrogen 28 MG/DL (7-18); Calcium 7.2 MG/DL (8.5-10.1); Glucose 111 MG/DL (74-106); Magnesium 1.7 MG/DL (1.8-2.4); Osmolality,Calculated 289.1 MOS/KG (273-304); Sodium 142 MMOL/L (136-145); Total Protein 5.1 G/DL (6.4-8.3)
[2017-01-12] MEDS ORDERED: hydrALAZINE 25 MG TABLET ONE (07:25)
[2017-01-12] MEDS: TORSEMIDE 20 MG TABLET PO SCH (08:29)
[2017-01-12] MEDS: PANTOPRAZOLE 40 MG TABLET PO SCH (08:29)
[2017-01-12] MEDS: FOLIC ACID 1 MG TABLET PO SCH (08:29)
[2017-01-12] MEDS: COLCHICINE 0.6 MG TABLET PO SCH ×2 (08:29→21:25)
[2017-01-12] MEDS: ASCORBIC ACID 500 MG TABLET PO SCH ×2 (08:29→21:25)
[2017-01-12] MEDS: SODIUM BICARBONATE 650 MG TABLET PO SCH (08:29)
[2017-01-12] MEDS: LABETALOL 100 MG TABLET PO SCH ×2 (08:29→21:26)
[2017-01-12] MEDS: SERTRALINE 25 MG TABLET PO SCH (08:29)
[2017-01-12] MEDS: CYCLOBENZAPRINE 10 MG TABLET PO SCH (21:24)
[2017-01-12] MEDS: AMITRIPTYLINE 10 MG TABLET PO PRN (21:26)
[2017-01-13 07:34] LABS: Free T4 (Free Thyroxine) 0.73 NG/DL (0.76-1.46); Thyroid Stimulating Hormone 1.81 uIU/ml (0.358-3.74)
[2017-01-13] MEDS: TORSEMIDE 20 MG TABLET PO SCH (08:42)
[2017-01-13] MEDS: SERTRALINE 25 MG TABLET PO SCH (08:42)
[2017-01-13] MEDS: COLCHICINE 0.6 MG TABLET PO SCH ×2 (08:43→20:49)
[2017-01-13] MEDS: ASPIRIN EC 81 MG TABLET PO SCH (08:43)
[2017-01-13] MEDS: SODIUM BICARBONATE 650 MG TABLET PO SCH (08:43)
[2017-01-13] MEDS: FOLIC ACID 1 MG TABLET PO SCH (08:43)
[2017-01-13] MEDS: CYCLOBENZAPRINE 10 MG TABLET PO SCH ×2 (08:43→20:49)
[2017-01-13] MEDS: ACETAMINOPHEN 325 MG TABLET PO PRN ×2 (08:43→16:40)
[2017-01-13] MEDS: PANTOPRAZOLE 40 MG TABLET PO SCH (08:43)
[2017-01-13] MEDS: ASCORBIC ACID 500 MG TABLET PO SCH ×2 (08:43→20:50)
[2017-01-13] MEDS: LABETALOL 100 MG TABLET PO SCH ×2 (08:44→20:50)
[2017-01-13] MEDS: AMITRIPTYLINE 10 MG TABLET PO PRN (20:50)
[2017-01-14] MEDS: SERTRALINE 25 MG TABLET PO SCH (08:09)
[2017-01-14] MEDS: SODIUM BICARBONATE 650 MG TABLET PO SCH (08:09)
[2017-01-14] MEDS: TORSEMIDE 20 MG TABLET PO SCH (08:09)
[2017-01-14] MEDS: ASCORBIC ACID 500 MG TABLET PO SCH ×2 (08:10→21:03)
[2017-01-14] MEDS: ASPIRIN EC 81 MG TABLET PO SCH (08:10)
[2017-01-14] MEDS: CYCLOBENZAPRINE 10 MG TABLET PO SCH ×2 (08:10→21:02)
[2017-01-14] MEDS: COLCHICINE 0.6 MG TABLET PO SCH ×2 (08:10→21:02)
[2017-01-14] MEDS: PANTOPRAZOLE 40 MG TABLET PO SCH (08:10)
[2017-01-14] MEDS: LABETALOL 100 MG TABLET PO SCH ×2 (08:10→21:03)
[2017-01-14] MEDS: FOLIC ACID 1 MG TABLET PO SCH (08:10)
[2017-01-14 11:22] LABS: Hepatitis A Ab IgM Quant 0.13 Index; Hepatitis A Ab IgM Result Negative (Negative); Hepatitis B Core IgM Quant 0.17 Index; Hepatitis B Core IgM Result Negative (Negative); Hepatitis B Surface Ag Quant 0.25 Index; Hepatitis B Surface Ag Result Negative (Negative); Hepatitis C Virus Ab Quant 0.04 Index; Hepatitis C Virus Ab Result Negative (Negative)
[2017-01-14] MEDS: AMITRIPTYLINE 10 MG TABLET PO PRN (21:02)
[2017-01-15] MEDS: ACETAMINOPHEN 325 MG TABLET PO PRN ×2 (05:25→08:15)
[2017-01-15] MEDS: SODIUM BICARBONATE 650 MG TABLET PO SCH (08:14)
[2017-01-15] MEDS: FOLIC ACID 1 MG TABLET PO SCH (08:14)
[2017-01-15] MEDS: LABETALOL 100 MG TABLET PO SCH ×2 (08:15→22:55)
[2017-01-15] MEDS: ASCORBIC ACID 500 MG TABLET PO SCH ×2 (08:15→22:53)
[2017-01-15] MEDS: PANTOPRAZOLE 40 MG TABLET PO SCH (08:15)
[2017-01-15] MEDS: CYCLOBENZAPRINE 10 MG TABLET PO SCH ×2 (08:15→22:56)
[2017-01-15] MEDS: TORSEMIDE 20 MG TABLET PO SCH (08:15)
[2017-01-15] MEDS: SERTRALINE 25 MG TABLET PO SCH (08:15)
[2017-01-15] MEDS: COLCHICINE 0.6 MG TABLET PO SCH ×2 (08:15→22:55)
[2017-01-15] MEDS: ASPIRIN EC 81 MG TABLET PO SCH (08:15)
[2017-01-15] MEDS: AMITRIPTYLINE 10 MG TABLET PO PRN (23:16)
[2017-01-16] MEDS: CYCLOBENZAPRINE 10 MG TABLET PO SCH ×2 (13:46→20:04)
[2017-01-16] MEDS: PANTOPRAZOLE 40 MG TABLET PO SCH (13:46)
[2017-01-16] MEDS: TORSEMIDE 20 MG TABLET PO SCH (13:46)
[2017-01-16] MEDS: FOLIC ACID 1 MG TABLET PO SCH (13:46)
[2017-01-16] MEDS: ASPIRIN EC 81 MG TABLET PO SCH (13:46)
[2017-01-16] MEDS: COLCHICINE 0.6 MG TABLET PO SCH ×2 (13:46→20:05)
[2017-01-16] MEDS: SERTRALINE 25 MG TABLET PO SCH (13:47)
[2017-01-16] MEDS: ASCORBIC ACID 500 MG TABLET PO SCH ×2 (13:47→20:05)
[2017-01-16] MEDS: SODIUM BICARBONATE 650 MG TABLET PO SCH (13:47)
[2017-01-16] MEDS: LABETALOL 100 MG TABLET PO SCH ×2 (13:47→20:05)
[2017-01-16] MEDS: AMITRIPTYLINE 10 MG TABLET PO PRN (20:09)
[2017-01-17] MEDS: COLCHICINE 0.6 MG TABLET PO SCH ×2 (08:10→20:32)
[2017-01-17] MEDS: PANTOPRAZOLE 40 MG TABLET PO SCH (08:10)
[2017-01-17] MEDS: ASPIRIN EC 81 MG TABLET PO SCH (08:10)
[2017-01-17] MEDS: FOLIC ACID 1 MG TABLET PO SCH (08:10)
[2017-01-17] MEDS: ASCORBIC ACID 500 MG TABLET PO SCH ×2 (08:10→20:33)
[2017-01-17] MEDS: SODIUM BICARBONATE 650 MG TABLET PO SCH (08:10)
[2017-01-17] MEDS: TORSEMIDE 20 MG TABLET PO SCH (08:10)
[2017-01-17] MEDS: CYCLOBENZAPRINE 10 MG TABLET PO SCH ×2 (08:10→20:33)
[2017-01-17] MEDS: LABETALOL 100 MG TABLET PO SCH ×2 (08:10→20:33)
[2017-01-17] MEDS: SERTRALINE 25 MG TABLET PO SCH (08:10)
[2017-01-17] MEDS: ACETAMINOPHEN 325 MG TABLET PO PRN (11:38)
[2017-01-17] MEDS: amLODIPine 10 MG TABLET PO PRN (16:34)
[2017-01-17] MEDS: AMITRIPTYLINE 10 MG TABLET PO PRN (20:33)
[2017-01-18] MEDS: TORSEMIDE 20 MG TABLET PO SCH (09:08)
[2017-01-18] MEDS: FOLIC ACID 1 MG TABLET PO SCH (09:08)
[2017-01-18] MEDS: PANTOPRAZOLE 40 MG TABLET PO SCH (09:08)
[2017-01-18] MEDS: LABETALOL 100 MG TABLET PO SCH ×2 (09:08→20:51)
[2017-01-18] MEDS: SERTRALINE 25 MG TABLET PO SCH (09:08)
[2017-01-18] MEDS: ASCORBIC ACID 500 MG TABLET PO SCH ×2 (09:09→20:51)
[2017-01-18] MEDS: CYCLOBENZAPRINE 10 MG TABLET PO SCH ×2 (09:10→20:51)
[2017-01-18] MEDS: SODIUM BICARBONATE 650 MG TABLET PO SCH (09:10)
[2017-01-18] MEDS: COLCHICINE 0.6 MG TABLET PO SCH ×2 (09:10→20:51)
[2017-01-18] MEDS: ASPIRIN EC 81 MG TABLET PO SCH (09:10)
[2017-01-18] MEDS ORDERED: hydrALAZINE 25 MG TABLET ONE (20:07)
[2017-01-18] MEDS: AMITRIPTYLINE 10 MG TABLET PO PRN (20:51)
[2017-01-19] MEDS: ACETAMINOPHEN 325 MG TABLET PO PRN (01:12)
[2017-01-19] MEDS: ASPIRIN EC 81 MG TABLET PO SCH (09:26)
[2017-01-19] MEDS: TORSEMIDE 20 MG TABLET PO SCH (09:26)
[2017-01-19] MEDS: SODIUM BICARBONATE 650 MG TABLET PO SCH (09:26)
[2017-01-19] MEDS: ASCORBIC ACID 500 MG TABLET PO SCH ×2 (09:27→21:05)
[2017-01-19] MEDS: FOLIC ACID 1 MG TABLET PO SCH (09:28)
[2017-01-19] MEDS: SERTRALINE 25 MG TABLET PO SCH (09:28)
[2017-01-19] MEDS: PANTOPRAZOLE 40 MG TABLET PO SCH (09:28)
[2017-01-19] MEDS: COLCHICINE 0.6 MG TABLET PO SCH ×2 (09:28→21:05)
[2017-01-19] MEDS: LABETALOL 100 MG TABLET PO SCH ×2 (09:28→21:05)
[2017-01-19] MEDS: CYCLOBENZAPRINE 10 MG TABLET PO SCH ×2 (09:28→21:05)
[2017-01-19] MEDS: AMITRIPTYLINE 10 MG TABLET PO PRN ×2 (16:12→21:05)
[2017-01-20] MEDS: PANTOPRAZOLE 40 MG TABLET PO SCH (08:19)
[2017-01-20] MEDS: COLCHICINE 0.6 MG TABLET PO SCH ×2 (08:19→21:32)
[2017-01-20] MEDS: TORSEMIDE 20 MG TABLET PO SCH (08:19)
[2017-01-20] MEDS: LABETALOL 100 MG TABLET PO SCH ×2 (08:19→21:32)
[2017-01-20] MEDS: CYCLOBENZAPRINE 10 MG TABLET PO SCH ×2 (08:19→21:40)
[2017-01-20] MEDS: FOLIC ACID 1 MG TABLET PO SCH (08:19)
[2017-01-20] MEDS: SODIUM BICARBONATE 650 MG TABLET PO SCH (08:19)
[2017-01-20] MEDS: ASCORBIC ACID 500 MG TABLET PO SCH ×2 (08:19→21:32)
[2017-01-20] MEDS: SERTRALINE 25 MG TABLET PO SCH (08:19)
[2017-01-20] MEDS: ASPIRIN EC 81 MG TABLET PO SCH (08:19)
[2017-01-20] MEDS: AMITRIPTYLINE 10 MG TABLET PO PRN (21:32)
[2017-01-21] MEDS: COLCHICINE 0.6 MG TABLET PO SCH ×2 (14:26→20:22)
[2017-01-21] MEDS: CYCLOBENZAPRINE 10 MG TABLET PO SCH ×2 (14:27→20:24)
[2017-01-21] MEDS: SODIUM BICARBONATE 650 MG TABLET PO SCH (14:47)
[2017-01-21] MEDS: ASCORBIC ACID 500 MG TABLET PO SCH ×2 (14:48→20:24)
[2017-01-21] MEDS: FOLIC ACID 1 MG TABLET PO SCH (14:48)
[2017-01-21] MEDS: PANTOPRAZOLE 40 MG TABLET PO SCH (14:48)
[2017-01-21] MEDS: ASPIRIN EC 81 MG TABLET PO SCH (14:48)
[2017-01-21] MEDS: TORSEMIDE 20 MG TABLET PO SCH (14:48)
[2017-01-21] MEDS: SERTRALINE 25 MG TABLET PO SCH (14:48)
[2017-01-21] MEDS: LABETALOL 100 MG TABLET PO SCH ×2 (14:48→20:25)
[2017-01-21] MEDS: AMITRIPTYLINE 10 MG TABLET PO PRN ×2 (14:57→23:14)
[2017-01-22] MEDS: TORSEMIDE 20 MG TABLET PO SCH (08:56)
[2017-01-22] MEDS: COLCHICINE 0.6 MG TABLET PO SCH ×2 (08:57→21:19)
[2017-01-22] MEDS: ASPIRIN EC 81 MG TABLET PO SCH (08:57)
[2017-01-22] MEDS: ASCORBIC ACID 500 MG TABLET PO SCH ×2 (08:57→21:20)
[2017-01-22] MEDS: FOLIC ACID 1 MG TABLET PO SCH (08:57)
[2017-01-22] MEDS: CYCLOBENZAPRINE 10 MG TABLET PO SCH ×2 (08:57→21:19)
[2017-01-22] MEDS: SERTRALINE 25 MG TABLET PO SCH (08:57)
[2017-01-22] MEDS: SODIUM BICARBONATE 650 MG TABLET PO SCH (08:57)
[2017-01-22] MEDS: LABETALOL 100 MG TABLET PO SCH ×2 (08:57→21:19)
[2017-01-22] MEDS: PANTOPRAZOLE 40 MG TABLET PO SCH (08:57)
[2017-01-22] MEDS: ACETAMINOPHEN 325 MG TABLET PO PRN ×2 (15:20→21:19)
[2017-01-22] MEDS: cloNIDine 0.1 MG TABLET PO PRN ×3 (17:08→21:20)
[2017-01-22] MEDS: LORazepam 0.5 MG TABLET PO PRN ×2 (17:08→22:43)
[2017-01-23 06:54] LABS: Basophils % 0.2 % (0.0-0.8); Eosinophils # 0.2 10*3/uL (0.0-0.87); Hematocrit 22.2 VOL% (35.7-47.0); Hemoglobin 7.4 GM/DL (12.0-16.0); Immature Granulocytes % 0.2 %; Immature Granulocytes Absolute 0.01 #; Lymphocytes # 1.9 10*3/uL (1.4-4.0); Lymphocytes % 37.2 % (21.3-54.2); Mean Corpuscular HGB Conc 33.3 GM/DL (32-36); Mean Corpuscular Hemoglobin 31 PG (27-34); Mean Corpuscular Volume 93.7 FL (87-102); Mean Platelet Volume 11.7 FL (9.6-12.0); Monocytes # 0.5 10*3/uL (0.11-0.8); Monocytes % 8.6 % (1.7-12.7); Neutrophils # 2.6 10*3/uL (1.4-7.4); Neutrophils % 49.8 % (38.7-73.9); Platelet Count 133 T/CUMM (130-400); Red Blood Count 2.37 MC/CUMM (3.8-5.5); Red Cell Distribution Width 18.1 % (9.3-17.3); White Blood Count 5.2 T/CUMM (4-12)
[2017-01-23 07:19] LABS: Osmolality,Calculated 295.5 MOS/KG (273-304); Potassium 5.5 MMOL/L (3.5-5.1)
[2017-01-23] MEDS: ASCORBIC ACID 500 MG TABLET PO SCH ×3 (08:10→20:28)
[2017-01-23] MEDS: SODIUM BICARBONATE 650 MG TABLET PO SCH (08:10)
[2017-01-23] MEDS: ASPIRIN EC 81 MG TABLET PO SCH ×2 (08:10→10:25)
[2017-01-23] MEDS: FOLIC ACID 1 MG TABLET PO SCH (08:10)
[2017-01-23] MEDS: CYCLOBENZAPRINE 10 MG TABLET PO SCH ×3 (08:10→20:28)
[2017-01-23] MEDS: PANTOPRAZOLE 40 MG TABLET PO SCH ×2 (08:10→10:22)
[2017-01-23] MEDS: COLCHICINE 0.6 MG TABLET PO SCH ×3 (08:10→20:28)
[2017-01-23] MEDS: TORSEMIDE 20 MG TABLET PO SCH ×2 (08:10→10:25)
[2017-01-23] MEDS: SERTRALINE 25 MG TABLET PO SCH (08:11)
[2017-01-23] MEDS: LABETALOL 100 MG TABLET PO SCH ×2 (08:11→20:29)
[2017-01-23] MEDS: LORazepam 0.5 MG TABLET PO PRN (10:04)
[2017-01-23] MEDS: ACETAMINOPHEN 325 MG TABLET PO PRN ×2 (16:53→23:26)
[2017-01-23] MEDS: AMITRIPTYLINE 10 MG TABLET PO PRN (21:25)
[2017-01-24] MEDS: LORazepam 0.5 MG TABLET PO PRN ×3 (00:28→22:27)
[2017-01-24] MEDS: LABETALOL 100 MG TABLET PO SCH ×2 (08:20→22:26)
[2017-01-24] MEDS: CYCLOBENZAPRINE 10 MG TABLET PO SCH ×2 (08:21→22:27)
[2017-01-24] MEDS: ASPIRIN EC 81 MG TABLET PO SCH (08:54)
[2017-01-24] MEDS: PANTOPRAZOLE 40 MG TABLET PO SCH (08:54)
[2017-01-24] MEDS: SERTRALINE 25 MG TABLET PO SCH (08:54)
[2017-01-24] MEDS: FOLIC ACID 1 MG TABLET PO SCH (08:54)
[2017-01-24] MEDS: COLCHICINE 0.6 MG TABLET PO SCH ×2 (08:54→22:27)
[2017-01-24] MEDS: SODIUM BICARBONATE 650 MG TABLET PO SCH (08:54)
[2017-01-24] MEDS: ASCORBIC ACID 500 MG TABLET PO SCH ×2 (08:54→22:26)
[2017-01-24] MEDS: TORSEMIDE 20 MG TABLET PO SCH (08:54)
[2017-01-24] MEDS ORDERED: EPOETIN ALFA 10,000 UNIT/1 ML VIAL IV PRN (10:05)
[2017-01-24] MEDS: ACETAMINOPHEN 325 MG TABLET PO PRN (17:56)
[2017-01-25] MEDS: LABETALOL 100 MG TABLET PO SCH ×2 (10:40→20:08)
[2017-01-25] MEDS: LORazepam 0.5 MG TABLET PO PRN ×2 (10:40→20:09)
[2017-01-25] MEDS: SERTRALINE 25 MG TABLET PO SCH (10:41)
[2017-01-25] MEDS: ASCORBIC ACID 500 MG TABLET PO SCH ×2 (10:41→20:08)
[2017-01-25] MEDS: SODIUM BICARBONATE 650 MG TABLET PO SCH (10:41)
[2017-01-25] MEDS: FOLIC ACID 1 MG TABLET PO SCH (10:41)
[2017-01-25] MEDS: TORSEMIDE 20 MG TABLET PO SCH (10:43)
[2017-01-25] MEDS: PANTOPRAZOLE 40 MG TABLET PO SCH (10:43)
[2017-01-25] MEDS: CYCLOBENZAPRINE 10 MG TABLET PO SCH ×2 (10:43→20:08)
[2017-01-25] MEDS: ASPIRIN EC 81 MG TABLET PO SCH (10:43)
[2017-01-25] MEDS: COLCHICINE 0.6 MG TABLET PO SCH ×2 (10:43→20:08)
[2017-01-25] MEDS: cloNIDine 0.1 MG TABLET PO PRN (18:34)
[2017-01-25] MEDS: ACETAMINOPHEN 325 MG TABLET PO PRN (18:34)
[2017-01-25] MEDS: AMITRIPTYLINE 10 MG TABLET PO PRN (20:09)
[2017-01-26] MEDS: COLCHICINE 0.6 MG TABLET PO SCH ×2 (09:18→20:30)
[2017-01-26] MEDS: SODIUM BICARBONATE 650 MG TABLET PO SCH (09:18)
[2017-01-26] MEDS: SERTRALINE 25 MG TABLET PO SCH (09:18)
[2017-01-26] MEDS: ASCORBIC ACID 500 MG TABLET PO SCH ×2 (09:18→20:30)
[2017-01-26] MEDS: FOLIC ACID 1 MG TABLET PO SCH (09:19)
[2017-01-26] MEDS: CYCLOBENZAPRINE 10 MG TABLET PO SCH ×2 (09:19→20:30)
[2017-01-26] MEDS: TORSEMIDE 20 MG TABLET PO SCH (09:19)
[2017-01-26] MEDS: PANTOPRAZOLE 40 MG TABLET PO SCH (09:19)
[2017-01-26] MEDS: ASPIRIN EC 81 MG TABLET PO SCH (09:19)
[2017-01-26] MEDS: LABETALOL 100 MG TABLET PO SCH ×2 (09:19→20:30)
[2017-01-26] MEDS: ACETAMINOPHEN 325 MG TABLET PO PRN (17:05)
[2017-01-26] MEDS: AMITRIPTYLINE 10 MG TABLET PO PRN (20:30)
[2017-01-26] MEDS: LORazepam 0.5 MG TABLET PO PRN (20:30)
[2017-01-27] MEDS: TORSEMIDE 20 MG TABLET PO SCH (09:07)
[2017-01-27] MEDS: CYCLOBENZAPRINE 10 MG TABLET PO SCH ×2 (09:08→20:27)
[2017-01-27] MEDS: SERTRALINE 25 MG TABLET PO SCH (09:08)
[2017-01-27] MEDS: COLCHICINE 0.6 MG TABLET PO SCH ×2 (09:08→20:26)
[2017-01-27] MEDS: LABETALOL 100 MG TABLET PO SCH ×2 (09:08→20:26)
[2017-01-27] MEDS: ASCORBIC ACID 500 MG TABLET PO SCH ×2 (09:08→20:26)
[2017-01-27] MEDS: FOLIC ACID 1 MG TABLET PO SCH (09:08)
[2017-01-27] MEDS: SODIUM BICARBONATE 650 MG TABLET PO SCH (09:08)
[2017-01-27] MEDS: PANTOPRAZOLE 40 MG TABLET PO SCH (09:08)
[2017-01-27] MEDS: ASPIRIN EC 81 MG TABLET PO SCH (09:09)
[2017-01-27] MEDS: ACETAMINOPHEN 325 MG TABLET PO PRN (16:18)
[2017-01-27] MEDS: LORazepam 0.5 MG TABLET PO PRN (20:26)
[2017-01-27] MEDS: AMITRIPTYLINE 10 MG TABLET PO PRN (20:26)
[2017-01-28] MEDS: cloNIDine 0.1 MG TABLET PO PRN (04:58)
[2017-01-28] MEDS: TORSEMIDE 20 MG TABLET PO SCH (08:52)
[2017-01-28] MEDS: COLCHICINE 0.6 MG TABLET PO SCH ×2 (08:52→21:55)
[2017-01-28] MEDS: ASPIRIN EC 81 MG TABLET PO SCH (08:53)
[2017-01-28] MEDS: LABETALOL 100 MG TABLET PO SCH ×2 (08:53→21:55)
[2017-01-28] MEDS: PANTOPRAZOLE 40 MG TABLET PO SCH (08:53)
[2017-01-28] MEDS: ASCORBIC ACID 500 MG TABLET PO SCH ×2 (08:53→21:55)
[2017-01-28] MEDS: SODIUM BICARBONATE 650 MG TABLET PO SCH (08:53)
[2017-01-28] MEDS: CYCLOBENZAPRINE 10 MG TABLET PO SCH ×2 (08:53→21:55)
[2017-01-28] MEDS: SERTRALINE 25 MG TABLET PO SCH (08:53)
[2017-01-28] MEDS: FOLIC ACID 1 MG TABLET PO SCH (08:53)
[2017-01-28] MEDS: LORazepam 0.5 MG TABLET PO PRN ×2 (14:45→21:56)
[2017-01-28] MEDS: cephALEXin 500 MG CAPSULE PO SCH ×3 (17:31→23:21)
[2017-01-28] MEDS: AMITRIPTYLINE 10 MG TABLET PO PRN (21:55)
[2017-01-28] MEDS: ACETAMINOPHEN 325 MG TABLET PO PRN (23:22)
[2017-01-29] MEDS: cephALEXin 500 MG CAPSULE PO SCH ×3 (05:03→17:50)
[2017-01-29] MEDS: SERTRALINE 25 MG TABLET PO SCH (09:48)
[2017-01-29] MEDS: PANTOPRAZOLE 40 MG TABLET PO SCH (09:48)
[2017-01-29] MEDS: ASPIRIN EC 81 MG TABLET PO SCH (09:48)
[2017-01-29] MEDS: COLCHICINE 0.6 MG TABLET PO SCH ×2 (09:48→21:50)
[2017-01-29] MEDS: ASCORBIC ACID 500 MG TABLET PO SCH ×2 (09:48→21:49)
[2017-01-29] MEDS: FOLIC ACID 1 MG TABLET PO SCH (09:48)
[2017-01-29] MEDS: TORSEMIDE 20 MG TABLET PO SCH (09:49)
[2017-01-29] MEDS: CYCLOBENZAPRINE 10 MG TABLET PO SCH ×2 (09:49→21:49)
[2017-01-29] MEDS: SODIUM BICARBONATE 650 MG TABLET PO SCH (09:49)
[2017-01-29] MEDS: LABETALOL 100 MG TABLET PO SCH ×2 (09:50→21:49)
[2017-01-29] MEDS: ACETAMINOPHEN 325 MG TABLET PO PRN ×2 (09:51→21:48)
[2017-01-29] MEDS: LORazepam 0.5 MG TABLET PO PRN (23:40)
[2017-01-30] MEDS: cephALEXin 500 MG CAPSULE PO SCH ×4 (00:17→18:14)
[2017-01-30] MEDS ORDERED: LORazepam 0.5 MG TABLET PO ONE (00:37)
[2017-01-30] MEDS: LORazepam 0.5 MG TABLET PO SCH ×3 (09:41→18:14)
[2017-01-30] MEDS: COLCHICINE 0.6 MG TABLET PO SCH ×2 (09:59→20:13)
[2017-01-30] MEDS: FOLIC ACID 1 MG TABLET PO SCH (09:59)
[2017-01-30] MEDS: ASPIRIN EC 81 MG TABLET PO SCH (09:59)
[2017-01-30] MEDS: TORSEMIDE 20 MG TABLET PO SCH (09:59)
[2017-01-30] MEDS: CYCLOBENZAPRINE 10 MG TABLET PO SCH ×2 (09:59→20:13)
[2017-01-30] MEDS: PANTOPRAZOLE 40 MG TABLET PO SCH (10:00)
[2017-01-30] MEDS: LABETALOL 100 MG TABLET PO SCH ×2 (10:00→20:14)
[2017-01-30] MEDS: SERTRALINE 25 MG TABLET PO SCH (10:00)
[2017-01-30] MEDS: ASCORBIC ACID 500 MG TABLET PO SCH ×2 (10:00→20:14)
[2017-01-30] MEDS: SODIUM BICARBONATE 650 MG TABLET PO SCH (10:00)
[2017-01-30] MEDS: ACETAMINOPHEN 325 MG TABLET PO PRN (18:13)
[2017-01-30] MEDS: cloNIDine 0.1 MG TABLET PO PRN (20:14)
[2017-01-31] MEDS: LORazepam 0.5 MG TABLET PO SCH ×4 (00:26→17:58)
[2017-01-31] MEDS: cephALEXin 500 MG CAPSULE PO SCH ×5 (00:26→17:58)
[2017-01-31] MEDS: ACETAMINOPHEN 325 MG TABLET PO PRN ×2 (05:11→18:03)
[2017-01-31] MEDS: cloNIDine 0.1 MG TABLET PO PRN (05:41)
[2017-01-31 07:25] LABS: Basophils % 0.5 % (0.0-0.8); Eosinophils % 3.2 % (0.00-10.9); Hematocrit 25.6 VOL% (35.7-47.0); Hemoglobin 8.4 GM/DL (12.0-16.0); Lymphocytes % 36.3 % (21.3-54.2); Mean Corpuscular HGB Conc 32.8 GM/DL (32-36); Mean Corpuscular Hemoglobin 31 PG (27-34); Mean Corpuscular Volume 93.8 FL (87-102); Mean Platelet Volume 10.6 FL (9.6-12.0); Monocytes % 7.4 % (1.7-12.7); Neutrophils % 52.1 % (38.7-73.9); Platelet Count 194 T/CUMM (130-400); Red Blood Count 2.73 MC/CUMM (3.8-5.5); Red Cell Distribution Width 17.9 % (9.3-17.3); White Blood Count 6.5 T/CUMM (4-12)
[2017-01-31 07:26] LABS: Eosinophils # 0.2 10*3/uL (0.0-0.87); Immature Granulocytes % 0.5 %; Immature Granulocytes Absolute 0.03 #; Lymphocytes # 2.4 10*3/uL (1.4-4.0); Monocytes # 0.5 10*3/uL (0.11-0.8); Neutrophils # 3.4 10*3/uL (1.4-7.4)
[2017-01-31 08:14] LABS: Osmolality,Calculated 305.3 MOS/KG (273-304)
[2017-01-31 08:16] LABS: Potassium 6.1 MMOL/L (3.5-5.1)
[2017-01-31] MEDS: SODIUM BICARBONATE 650 MG TABLET PO SCH (10:27)
[2017-01-31] MEDS: LABETALOL 100 MG TABLET PO SCH ×2 (10:28→22:19)
[2017-01-31] MEDS: PANTOPRAZOLE 40 MG TABLET PO SCH (10:28)
[2017-01-31] MEDS: ASPIRIN EC 81 MG TABLET PO SCH (10:28)
[2017-01-31] MEDS: COLCHICINE 0.6 MG TABLET PO SCH ×2 (10:28→22:18)
[2017-01-31] MEDS: ASCORBIC ACID 500 MG TABLET PO SCH ×2 (10:28→22:19)
[2017-01-31] MEDS: SERTRALINE 25 MG TABLET PO SCH (10:29)
[2017-01-31] MEDS: CYCLOBENZAPRINE 10 MG TABLET PO SCH ×2 (10:29→22:18)
[2017-01-31] MEDS: TORSEMIDE 20 MG TABLET PO SCH (10:29)
[2017-01-31] MEDS: FOLIC ACID 1 MG TABLET PO SCH (10:29)
[2017-01-31] MEDS: traMADol 50 MG TABLET PO SCH ×2 (10:37→22:21)
[2017-01-31] MEDS ORDERED: SODIUM POLYSTYRENE SULFATE 15 GM/60 ML BOTTLE PO ONE (16:10)
[2017-02-01] MEDS: cloNIDine 0.1 MG TABLET PO PRN ×2 (00:06→01:10)
[2017-02-01] MEDS: LORazepam 0.5 MG TABLET PO SCH ×4 (00:06→17:43)
[2017-02-01] MEDS: cephALEXin 500 MG CAPSULE PO SCH ×4 (00:06→17:05)
[2017-02-01] MEDS: COLCHICINE 0.6 MG TABLET PO SCH ×2 (08:22→21:35)
[2017-02-01] MEDS: LABETALOL 100 MG TABLET PO SCH ×2 (08:22→21:35)
[2017-02-01] MEDS: CYCLOBENZAPRINE 10 MG TABLET PO SCH ×2 (08:22→21:35)
[2017-02-01] MEDS: ASPIRIN EC 81 MG TABLET PO SCH (08:22)
[2017-02-01] MEDS: SERTRALINE 25 MG TABLET PO SCH (08:23)
[2017-02-01] MEDS: traMADol 50 MG TABLET PO SCH ×2 (08:23→21:35)
[2017-02-01] MEDS: ASCORBIC ACID 500 MG TABLET PO SCH ×2 (10:05→21:35)
[2017-02-01] MEDS: PANTOPRAZOLE 40 MG TABLET PO SCH (10:05)
[2017-02-01] MEDS: FOLIC ACID 1 MG TABLET PO SCH (10:05)
[2017-02-01] MEDS: TORSEMIDE 20 MG TABLET PO SCH (10:05)
[2017-02-01] MEDS: SODIUM BICARBONATE 650 MG TABLET PO SCH (10:05)
[2017-02-01] MEDS: ACETAMINOPHEN 325 MG TABLET PO PRN (14:45)
[2017-02-02] MEDS: ACETAMINOPHEN 325 MG TABLET PO PRN ×3 (00:26→23:37)
[2017-02-02] MEDS: cephALEXin 500 MG CAPSULE PO SCH ×5 (00:26→23:37)
[2017-02-02] MEDS: AMITRIPTYLINE 10 MG TABLET PO PRN (00:26)
[2017-02-02] MEDS: LORazepam 0.5 MG TABLET PO SCH ×5 (00:26→23:37)
[2017-02-02] MEDS: COLCHICINE 0.6 MG TABLET PO SCH ×2 (08:18→20:41)
[2017-02-02] MEDS: SERTRALINE 25 MG TABLET PO SCH (08:19)
[2017-02-02] MEDS: ASPIRIN EC 81 MG TABLET PO SCH (08:19)
[2017-02-02] MEDS: CYCLOBENZAPRINE 10 MG TABLET PO SCH ×2 (08:19→20:41)
[2017-02-02] MEDS: traMADol 50 MG TABLET PO SCH (08:19)
[2017-02-02] MEDS: LABETALOL 100 MG TABLET PO SCH ×2 (08:19→20:41)
[2017-02-02] MEDS: ASCORBIC ACID 500 MG TABLET PO SCH ×2 (09:17→20:41)
[2017-02-02] MEDS: SODIUM BICARBONATE 650 MG TABLET PO SCH (09:17)
[2017-02-02] MEDS: TORSEMIDE 20 MG TABLET PO SCH (09:17)
[2017-02-02] MEDS: PANTOPRAZOLE 40 MG TABLET PO SCH (09:17)
[2017-02-02] MEDS: FOLIC ACID 1 MG TABLET PO SCH (09:17)
[2017-02-03] MEDS: LORazepam 0.5 MG TABLET PO SCH ×3 (06:47→17:12)
[2017-02-03] MEDS: cephALEXin 500 MG CAPSULE PO SCH ×3 (06:48→17:12)
[2017-02-03] MEDS: LABETALOL 100 MG TABLET PO SCH ×2 (08:07→21:41)
[2017-02-03] MEDS: CYCLOBENZAPRINE 10 MG TABLET PO SCH ×2 (08:07→21:41)
[2017-02-03] MEDS: SERTRALINE 25 MG TABLET PO SCH (08:07)
[2017-02-03] MEDS: COLCHICINE 0.6 MG TABLET PO SCH ×2 (08:07→21:41)
[2017-02-03] MEDS: ASPIRIN EC 81 MG TABLET PO SCH (08:08)
[2017-02-03] MEDS: SODIUM BICARBONATE 650 MG TABLET PO SCH (09:06)
[2017-02-03] MEDS: FOLIC ACID 1 MG TABLET PO SCH (09:06)
[2017-02-03] MEDS: TORSEMIDE 20 MG TABLET PO SCH (09:06)
[2017-02-03] MEDS: PANTOPRAZOLE 40 MG TABLET PO SCH (09:06)
[2017-02-03] MEDS: ASCORBIC ACID 500 MG TABLET PO SCH ×2 (09:06→21:41)
[2017-02-03] MEDS: ACETAMINOPHEN 325 MG TABLET PO PRN (14:59)
[2017-02-04] MEDS: LORazepam 0.5 MG TABLET PO SCH ×5 (01:02→23:48)
[2017-02-04] MEDS: cephALEXin 500 MG CAPSULE PO SCH ×5 (01:03→23:48)
[2017-02-04] MEDS: amLODIPine 10 MG TABLET PO PRN (04:41)
[2017-02-04] MEDS: cloNIDine 0.1 MG TABLET PO PRN ×2 (04:42→06:21)
[2017-02-04] MEDS: ASPIRIN EC 81 MG TABLET PO SCH (09:29)
[2017-02-04] MEDS: ASCORBIC ACID 500 MG TABLET PO SCH ×2 (09:29→20:14)
[2017-02-04] MEDS: SERTRALINE 25 MG TABLET PO SCH (09:29)
[2017-02-04] MEDS: TORSEMIDE 20 MG TABLET PO SCH (09:29)
[2017-02-04] MEDS: FOLIC ACID 1 MG TABLET PO SCH (09:29)
[2017-02-04] MEDS: SODIUM BICARBONATE 650 MG TABLET PO SCH (09:29)
[2017-02-04] MEDS: COLCHICINE 0.6 MG TABLET PO SCH ×2 (09:29→20:14)
[2017-02-04] MEDS: PANTOPRAZOLE 40 MG TABLET PO SCH (09:29)
[2017-02-04] MEDS: LABETALOL 100 MG TABLET PO SCH ×2 (09:29→20:14)
[2017-02-04] MEDS: CYCLOBENZAPRINE 10 MG TABLET PO SCH ×2 (09:29→20:14)
[2017-02-04] MEDS: ACETAMINOPHEN 325 MG TABLET PO PRN (14:23)
[2017-02-04] MEDS: AMITRIPTYLINE 10 MG TABLET PO PRN (20:15)
[2017-02-05] MEDS: cloNIDine 0.1 MG TABLET PO PRN ×3 (03:44→23:43)
[2017-02-05] MEDS: cephALEXin 500 MG CAPSULE PO SCH ×4 (05:35→23:18)
[2017-02-05] MEDS: LORazepam 0.5 MG TABLET PO SCH ×4 (06:05→23:37)
[2017-02-05] MEDS: LABETALOL 100 MG TABLET PO SCH ×2 (08:21→20:19)
[2017-02-05] MEDS: ASPIRIN EC 81 MG TABLET PO SCH (08:22)
[2017-02-05] MEDS: PANTOPRAZOLE 40 MG TABLET PO SCH (08:22)
[2017-02-05] MEDS: ASCORBIC ACID 500 MG TABLET PO SCH ×2 (08:22→20:19)
[2017-02-05] MEDS: FOLIC ACID 1 MG TABLET PO SCH (08:22)
[2017-02-05] MEDS: SODIUM BICARBONATE 650 MG TABLET PO SCH (08:22)
[2017-02-05] MEDS: TORSEMIDE 20 MG TABLET PO SCH (08:22)
[2017-02-05] MEDS: COLCHICINE 0.6 MG TABLET PO SCH ×2 (08:22→20:19)
[2017-02-05] MEDS: CYCLOBENZAPRINE 10 MG TABLET PO SCH ×2 (08:22→20:19)
[2017-02-05] MEDS: SERTRALINE 25 MG TABLET PO SCH (08:22)
[2017-02-05] MEDS: ACETAMINOPHEN 325 MG TABLET PO PRN (11:59)
[2017-02-05] MEDS: ZALEPLON 5 MG CAPSULE PO PRN (20:19)
[2017-02-06] MEDS: cloNIDine 0.1 MG TABLET PO PRN (04:12)
[2017-02-06] MEDS: cephALEXin 500 MG CAPSULE PO SCH (05:10)
[2017-02-06] MEDS: LORazepam 0.5 MG TABLET PO SCH ×3 (05:16→18:47)
[2017-02-06] MEDS: ACETAMINOPHEN 325 MG TABLET PO PRN ×2 (06:49→15:47)
[2017-02-06] MEDS: ASCORBIC ACID 500 MG TABLET PO SCH ×2 (09:01→21:36)
[2017-02-06] MEDS: SODIUM BICARBONATE 650 MG TABLET PO SCH (09:02)
[2017-02-06] MEDS: LABETALOL 100 MG TABLET PO SCH (09:02)
[2017-02-06] MEDS: ASPIRIN EC 81 MG TABLET PO SCH (09:02)
[2017-02-06] MEDS: TORSEMIDE 20 MG TABLET PO SCH (09:02)
[2017-02-06] MEDS: COLCHICINE 0.6 MG TABLET PO SCH ×2 (09:02→21:37)
[2017-02-06] MEDS: SERTRALINE 25 MG TABLET PO SCH (09:02)
[2017-02-06] MEDS: PANTOPRAZOLE 40 MG TABLET PO SCH (09:02)
[2017-02-06] MEDS: CYCLOBENZAPRINE 10 MG TABLET PO SCH ×2 (09:02→21:37)
[2017-02-06] MEDS: FOLIC ACID 1 MG TABLET PO SCH (09:03)
[2017-02-06] MEDS: LABETALOL 200 MG TABLET PO SCH ×2 (11:36→21:37)
[2017-02-06] MEDS: ZALEPLON 5 MG CAPSULE PO PRN (21:36)
[2017-02-07] MEDS: LORazepam 0.5 MG TABLET PO SCH ×5 (04:03→23:06)
[2017-02-07] MEDS: cloNIDine 0.1 MG TABLET PO PRN ×2 (04:04→23:06)
[2017-02-07 07:13] LABS: Basophils % 0.2 % (0.0-0.8); Eosinophils # 0.3 10*3/uL (0.0-0.87); Eosinophils % 6.1 % (0.00-10.9); Hematocrit 24.6 VOL% (35.7-47.0); Immature Granulocytes % 0.2 %; Immature Granulocytes Absolute 0.01 #; Lymphocytes # 1.4 10*3/uL (1.4-4.0); Lymphocytes % 25.1 % (21.3-54.2); Mean Corpuscular HGB Conc 32.5 GM/DL (32-36); Mean Corpuscular Hemoglobin 30 PG (27-34); Mean Corpuscular Volume 92.8 FL (87-102); Mean Platelet Volume 10.5 FL (9.6-12.0); Monocytes # 0.5 10*3/uL (0.11-0.8); Monocytes % 8.3 % (1.7-12.7); Neutrophils # 3.4 10*3/uL (1.4-7.4); Neutrophils % 60.1 % (38.7-73.9); Platelet Count 156 T/CUMM (130-400); Red Blood Count 2.65 MC/CUMM (3.8-5.5); Red Cell Distribution Width 16.7 % (9.3-17.3); White Blood Count 5.6 T/CUMM (4-12)
[2017-02-07] MEDS: SERTRALINE 50 MG TABLET PO SCH ×2 (07:27→09:36)
[2017-02-07] MEDS: LABETALOL 200 MG TABLET PO SCH ×3 (07:29→22:25)
[2017-02-07] MEDS: TORSEMIDE 20 MG TABLET PO SCH ×2 (07:30→09:37)
[2017-02-07 07:47] LABS: Calcium 8.4 MG/DL (8.5-10.1); Magnesium 1.7 MG/DL (1.8-2.4); Osmolality,Calculated 293.3 MOS/KG (273-304)
[2017-02-07] MEDS: COLCHICINE 0.6 MG TABLET PO SCH ×2 (09:27→22:26)
[2017-02-07] MEDS: FOLIC ACID 1 MG TABLET PO SCH (09:28)
[2017-02-07] MEDS: SODIUM BICARBONATE 650 MG TABLET PO SCH (09:28)
[2017-02-07] MEDS: ASCORBIC ACID 500 MG TABLET PO SCH ×2 (09:28→22:25)
[2017-02-07] MEDS: PANTOPRAZOLE 40 MG TABLET PO SCH (09:28)
[2017-02-07] MEDS: CYCLOBENZAPRINE 10 MG TABLET PO SCH ×2 (09:29→22:26)
[2017-02-07] MEDS: ASPIRIN EC 81 MG TABLET PO SCH (09:29)
[2017-02-07] MEDS: ZALEPLON 5 MG CAPSULE PO PRN (22:26)
[2017-02-08] MEDS: cloNIDine 0.1 MG TABLET PO PRN (05:35)
[2017-02-08] MEDS: LORazepam 0.5 MG TABLET PO SCH (05:35)
[2017-02-08] MEDS: SODIUM BICARBONATE 650 MG TABLET PO SCH (08:06)
[2017-02-08] MEDS: TORSEMIDE 20 MG TABLET PO SCH (08:06)
[2017-02-08] MEDS: SERTRALINE 50 MG TABLET PO SCH (08:06)
[2017-02-08] MEDS: ASCORBIC ACID 500 MG TABLET PO SCH (08:06)
[2017-02-08] MEDS: COLCHICINE 0.6 MG TABLET PO SCH (08:06)
[2017-02-08] MEDS: LABETALOL 200 MG TABLET PO SCH (08:07)
[2017-02-08] MEDS: CYCLOBENZAPRINE 10 MG TABLET PO SCH (08:07)
[2017-02-08] MEDS: ASPIRIN EC 81 MG TABLET PO SCH (08:07)
[2017-02-08] MEDS: PANTOPRAZOLE 40 MG TABLET PO SCH (08:07)
[2017-02-08] MEDS: FOLIC ACID 1 MG TABLET PO SCH (08:07)
[2017-02-08 10:31] VITALS: BP 182/77
== END 2017-02-08 10:35 | DRG 683 ==
LOC: EDUNIT# → EDBD → N.ED 14:55 → N.EDINP 17:52 → SUATTDRO 17:52 → N.5E 18:51
PROVIDERS: ADMIT Internal Medicine; ATTEND Internal Medicine

== ENCOUNTER 2019-11-21 10:10 | Inpatient (IN) ==
[2019-11-21] MEDS ORDERED: SODIUM CHLORIDE 0.9% 500 ML IV STA ×2 (10:40→12:09)
[2019-11-21] MEDS ORDERED: PANTOPRAZOLE 40 MG VIAL IV STA (10:40)
[2019-11-21] MEDS ORDERED: ONDANSETRON 4 MG/2 ML VIAL IV STA (10:40)
[2019-11-21 11:09] LABS: Basophils % 0.2 % (0.0-0.8); Eosinophils % 0.2 % (0.00-10.9); Hematocrit 34.1 VOL% (35.7-47.0); Hemoglobin 11.3 GM/DL (12.0-16.0); Immature Granulocytes % 0.7 %; Immature Granulocytes Absolute 0.04 #; Lymphocytes # 0.6 10*3/uL (1.4-4.0); Lymphocytes % 10.6 % (21.3-54.2); Mean Corpuscular HGB Conc 33.1 GM/DL (32-36); Mean Corpuscular Volume 83.6 FL (87-102); Monocytes % 5.7 % (1.7-12.7); NRBC # 0.02 10*3/uL; Neutrophils % 82.6 % (38.7-73.9); Red Blood Count 4.08 MC/CUMM (3.8-5.5); White Blood Count 5.7 T/CUMM (4-12)
[2019-11-21 11:12] LABS: Platelet Count 81 T/CUMM (130-400)
[2019-11-21 11:24] LABS: INR 1.5; PT Patient Result 15.6 SECS (9.8-11.9); Partial Thromboplastin Time 34.5 SECS (23.9-33.8)
[2019-11-21 11:36] LABS: Albumin 1.8 G/DL (3.4-5.0); Bilirubin,Total 0.9 MG/DL (0.2-1.0); Calcium 9.5 MG/DL (8.5-10.1); Osmolality,Calculated 285.1 MOS/KG (273-304); Total Protein 5.3 G/DL (6.4-8.3)
[2019-11-21 11:56] LABS: Acanthocytes Few; Hypochromasia 2+
[2019-11-21 11:57] LABS: Anisocytosis 1+; Platelet Estimate Decreased; Target Cells Slight
[2019-11-21] MEDS ORDERED: GLUCAGON 1 MG VIAL IM PRN (12:19)
[2019-11-21] MEDS ORDERED: MAGNESIUM SULF RIDER 2 GM in PREMIX 1 EACH IV PRN (14:08)
[2019-11-21] MEDS ORDERED: MAGNESIUM SULF RIDER 4 GM in PREMIX 1 EACH IV PRN (14:08)
[2019-11-21] MEDS ORDERED: ONDANSETRON 4 MG/2 ML VIAL IV PRN (15:53)
[2019-11-21] MEDS: POTASSIUM CHLORIDE RIDER 10 MEQ in PREMIX 1 EACH IV PRN ×3 (16:27→20:43)
[2019-11-21] MEDS ORDERED: SODIUM CHLORIDE 0.9% 1,000 ML IV SCH (18:30)
[2019-11-21] MEDS: SEVELAMER CARBONATE 800 MG TABLET PO SCH (19:53)
[2019-11-21] MEDS: cloNIDine 0.1 MG TABLET PO SCH (20:38)
[2019-11-21] MEDS: AMITRIPTYLINE 25 MG TABLET PO SCH (20:45)
[2019-11-21] MEDS: PANTOPRAZOLE 40 MG VIAL IV SCH (20:45)
[2019-11-21] MEDS: carvediloL 25 MG TABLET PO SCH ×2 (20:46→20:52)
[2019-11-21] MEDS: MIRTAZAPINE 15 MG TABLET PO SCH (20:46)
[2019-11-21] MEDS: ATORVASTATIN 80 MG TABLET PO SCH (20:46)
[2019-11-21 23:05] LABS: Hematocrit 30.7 VOL% (35.7-47.0); Hemoglobin 10.1 GM/DL (12.0-16.0)
[2019-11-22] MEDS: POTASSIUM CHLORIDE RIDER 10 MEQ in PREMIX 1 EACH IV PRN (02:44)
[2019-11-22 06:52] LABS: Basophils % 0.2 % (0.0-0.8); Eosinophils % 0.2 % (0.00-10.9); Hematocrit 30.1 VOL% (35.7-47.0); Immature Granulocytes % 0.8 %; Immature Granulocytes Absolute 0.04 #; Lymphocytes # 0.5 10*3/uL (1.4-4.0); Lymphocytes % 10.8 % (21.3-54.2); Mean Corpuscular HGB Conc 33.2 GM/DL (32-36); Mean Corpuscular Volume 83.8 FL (87-102); Monocytes % 5.7 % (1.7-12.7); NRBC # 0.02 10*3/uL; Neutrophils % 82.3 % (38.7-73.9); Platelet Count 93 T/CUMM (130-400); Red Blood Count 3.59 MC/CUMM (3.8-5.5); Red Cell Distribution Width 18.5 % (9.3-17.3); White Blood Count 4.9 T/CUMM (4-12)
[2019-11-22 07:13] LABS: Calcium 9.2 MG/DL (8.5-10.1); Osmolality,Calculated 285.1 MOS/KG (273-304)
[2019-11-22 07:30] LABS: Band Neutrophils 2 % (0-10); Eosinophils 2 % (0-10); Hypochromasia 2+; Lymphocytes 12 % (20-55); Nucleated Red Blood Cells 1 (0-5); Segmented Neutrophils 80 % (50-85); Total Cells Counted 100
[2019-11-22 07:31] LABS: Anisocytosis 1+; Ovalocytes Slight; Target Cells Few
[2019-11-22 07:32] LABS: Platelet Estimate Decreased
[2019-11-22] MEDS: DEXTROSE 50% 25 GM/50 ML VIAL IV PRN ×2 (07:45→21:09)
[2019-11-22] MEDS ORDERED: COLCHICINE 0.6 MG CAPSULE PO SCH (09:00)
[2019-11-22] MEDS ORDERED: FOLIC ACID 1 MG TABLET PO SCH (09:00)
[2019-11-22] MEDS ORDERED: lisinopriL 10 MG TABLET PO SCH (09:00)
[2019-11-22] MEDS ORDERED: LEVOTHYROXINE 112 MCG TABLET PO SCH (09:00)
[2019-11-22] MEDS ORDERED: SERTRALINE 100 MG TABLET PO SCH (09:00)
[2019-11-22] MEDS ORDERED: SODIUM BICARBONATE 650 MG TABLET PO SCH (09:00)
[2019-11-22] MEDS: SEVELAMER CARBONATE 800 MG TABLET PO SCH ×3 (09:58→17:40)
[2019-11-22] MEDS: PANTOPRAZOLE 40 MG VIAL IV SCH ×2 (09:58→21:03)
[2019-11-22] MEDS: carvediloL 25 MG TABLET PO SCH ×2 (09:59→22:21)
[2019-11-22] MEDS: cloNIDine 0.1 MG TABLET PO SCH ×2 (09:59→22:21)
[2019-11-22] MEDS ORDERED: ACETAMINOPHEN 325 MG TABLET PO PRN (10:06)
[2019-11-22] MEDS: INSULIN LISPRO 100 UNIT/ML SUBCUT SCH ×2 (16:16→22:22)
[2019-11-22] MEDS ORDERED: GLUCOSE GEL 15 GM TUBE PO ONE (20:14)
[2019-11-22] MEDS ORDERED: GLUCOSE GEL 15 GM TUBE PO PRN (20:42)
[2019-11-22] MEDS: ATORVASTATIN 80 MG TABLET PO SCH (20:57)
[2019-11-22] MEDS: MIRTAZAPINE 15 MG TABLET PO SCH (20:57)
[2019-11-22] MEDS: AMITRIPTYLINE 25 MG TABLET PO SCH (20:57)
[2019-11-22] MEDS ORDERED: POLYETHYLENE GLYCOL POWDER 17 GM PACK PO SCH (21:00)
[2019-11-23 01:21] VITALS: BP 122/51
[2019-11-23] MEDS ORDERED: EPINEPHrine 1 MG/10 ML SYRINGE ONE (05:22)
[2019-11-23] MEDS ORDERED: SODIUM BICARBONATE 50 MEQ/50 ML SYRINGE IV ONE (05:22)
[2019-11-23] MEDS ORDERED: DEXTROSE 50% 25 GM/50 ML SYRINGE IV ONE (05:22)
== END 2019-11-23 09:00 | disposition expired | DRG 377 ==
LOC: EDUNIT# → EDBD → N.ED 10:10 → N.EDINP 12:19 → N.TELEN 14:13
PROVIDERS: ADMIT Internal Medicine; ATTEND Internal Medicine